=== PATIENT | female | born 1995 ===

== ENCOUNTER 2017-03-23 01:26 | Inpatient (IN) | payer SELFPAY ==
[2017-03-23 01:26] VITALS: BMI 20.6
--- NOTE | 2017-03-23 02:29 | ED PDOC ---
HPI: Abdomen Chief Complaint (Provider): abdominal pain History Per: Patient History/Exam Limitations: no limitations Onset/Duration Of Symptoms: Days (2) Current Symptoms Are (Timing): Still Present Severity: Moderate Location Of Pain/Discomfort: RUQ, Epigastric (radiating to lower thoracic spine) Quality Of Discomfort: Sharp, "Pain" Associated Symptoms: Nausea, Vomiting, Loss Of Appetite Exacerbating Factors: Supine, Movement, Food Alleviating Factors: Rest, Other (food) <Francisco Shook - Last Filed: 03/23/17 05:54> <Soraida Lopez - Last Filed: 03/23/17 05:57> Time Seen by Provider: 03/23/17 01:58 Chief Complaint (Nursing): Abdominal Pain Additional Complaint(s): Adela Nova is a pleasant 21 yo lady with no significant PMHx presents with 2 day history of epigastric pain radiating to lower thoracic spine and to the RUQ. She shares of associated N and vomiting x1 15 minutes prior to arriving. She shares that pain is sharp, intermittent. Aggravating factors include laying down and eating. Alleviating factors include rest and also eating. Denies constipation, diarrhea, dysuria, recent accidents or trauma to abdomen. PmHx: none Surg: none FamHx: nephrolithiasis Soc: denies smoking or illicit drugs. Shares of drinking beers twice a month. Currently, in a lesbian relationship, sexually active, no history of STI LMP: 03/16/2017, regular monthly cycles for 3 days Meds: Famotidine NKDA (Francisco Shook) Supervising Attending Note - Supervising Attending Note The Documented history was done by the: Physician Legal Contracts Specialist, Attending Physician The documented physical exam was done by the: Physician Legal Contracts Specialist, Attending Physician The documented procedures were done by the: Physician Legal Contracts Specialist, Attending Physician - Attestation: I have personally seen and examined this patient.: Yes I have fully participated in the care of the patient.: Yes I have reviewed all pertinent clinical information: Yes <Soraida Lopez - Last Filed: 03/23/17 05:57> Past Medical History - Medical History PMH: No Chronic Diseases - Surgical History Surgical History: No Surg Hx - Family History Family History: States: Other Other Family History: Nephrolithaisis - Social History Current smoker - smoking cessation education provided: No Alcohol: Occasional Drugs: Denies - Immunization History Hx Tetanus Toxoid Vaccination: No Hx Influenza Vaccination: No Hx Pneumococcal Vaccination: No <Francisco Shook Last Filed: 03/23/17 05:54> <Soraida Lopez A - Last Filed: 03/23/17 05:57> Vital Signs: Last Vital Signs Temp 97.5 F L 03/23/17 01:44 Pulse 92 H 03/23/17 01:44 Resp 18 03/23/17 01:44 BP 124/79 03/23/17 01:44 Pulse Ox 99 03/23/17 05:54 - Home Medications Home Medications: Ambulatory Orders Medication Instructions Recorded Famotidine [Pepcid] 20 mg PO DAILY PRN #6 tab 02/22/16 Famotidine [Pepcid] 20 mg PO DAILY #14 tab 02/23/16 Sucralfate [Carafate] 1 gm PO Q6H PRN #240 ml 02/26/16 - Allergies Allergies/Adverse Reactions: Allergies Allergy/AdvReac Type Severity Reaction Status Date / Time No Known Allergies Allergy Verified 02/26/16 17:24 Review of Systems ROS Statement: Except As Marked, All Systems Reviewed And Found Negative Gastrointestinal: Positive for: Nausea, Vomiting, Abdominal Pain (epigastric and RUQ) Musculoskeletal: Positive for: Back Pain (lower thoracic 2/2 epigastric pain) <Francisco Shook Filed: 03/23/17 05:54> Physical Exam - Reviewed Vital Signs Reviewed: Yes - Physical Exam Appears: Positive for: No Acute Distress Head Exam: Positive for: ATRAUMATIC, NORMAL INSPECTION, NORMOCEPHALIC Skin: Positive for: Warm, Dry, Jaundice Eye Exam: Positive for: Normal appearance, EOMI. Negative for: Nystagmus, Scleral icterus Cardiovascular/Chest: Positive for: Regular Rate, Rhythm, Chest Non Tender. Negative for: Murmur Respiratory: Positive for: Normal Breath Sounds. Negative for: Accessory Muscle Use, Wheezing Gastrointestinal/Abdominal: Positive for: Bowel Sounds, Soft, Tenderness ( epigastric). Negative for: Distended, Guarding, Rebound Back: Negative for: L CVA Tenderness, R CVA Tenderness Extremity: Negative for: Calf Tenderness Neurologic/Psych: Positive for: Alert, media relations director II-XII, Oriented <Francisco Shook - Last Filed: 03/23/17 05:54> - Laboratory Results Result Diagrams: 03/23/17 02:50 03/23/17 02:50 - ECG O2 Sat by Pulse Oximetry: 99 <Francisco Shook - Last Filed: 03/23/17 05:54> - Laboratory Results Result Diagrams: 03/23/17 02:50 03/23/17 02:50 <Soraida Lopez - Last Filed: 03/23/17 05:57> Medical Decision Making <Francisco Shook - Last Filed: 03/23/17 05:54> <Soraida Lopez - Last Filed: 03/23/17 05:57> Medical Decision Makin Discussed with Dr Saldana. He will be on consult. Recommends tylenol level adn MRCP. (Soraida Lopez) Procedures - Ultrasound Ultrasound: normal <Francisco Shook - Last Filed: 03/23/17 05:54> <Soraida Lopez - Last Filed: 03/23/17 05:57> - Ultrasound Progress: IMPRESSION: Normal right upper quadrant ultrasound. (Shook,Singh) Disposition Discussed With Dr.: Soraida Lopez Comment: DDX: choledocholithiasis, acute hepatitis. Consult GI possible MRCP vs CT abdo. <Francisco Shook - Last Filed: 03/23/17 05:54> - Patient ED Disposition Is Patient to be Admitted: Yes Counseled Patient/Family Regarding: Studies Performed, Diagnosis - Disposition Disposition Time: 05:40 - Pt Status Changed To: Hospital Disposition Of: Inpatient - Admit Certification Admit to Inpatient:: After my assessment, the patient will require hospitalization for at least two midnights. This is because of the severity of symptoms shown, intensity of services needed, and/or the medical risk in this patient being treated as an outpatient. - POA Present On Arrival: None <Soraida Lopez - Last Filed: 03/23/17 05:57> - Clinical Impression Clinical Impression: Liver enzyme elevation, Abdominal pain, Jaundice, Transaminitis - Disposition Condition: FAIR
[2017-03-23] MEDS ORDERED: Sodium Chloride 0.9% 1,000 ML IV SCH (02:30)
[2017-03-23] MEDS ORDERED: Sodium Chloride 0.9% 1,000 ML IV STA (02:57)
[2017-03-23 03:05] LABS: BASO % 0.4 % (0.0-2.0); EOS # 0.3 K/uL (0.0-0.7); EOS % 5.6 % (0.0-4.0); HEMOGLOBIN 14.9 g/dL (12.0-16.0); LYMPH % 18.5 % (20.0-40.0); MEAN CELL VOLUME 89.5 fl (81.0-99.0); MEAN CORPUSCULAR HEMOGLOBIN 30.5 pg (27.0-31.0); MEAN CORPUSCULAR HGB CONC 34.1 g/dL (33.0-37.0); MEAN PLATELET VOLUME 7.9 fl (7.2-11.7); MONO # 0.4 K/uL (0.0-0.8); MONO % 7.2 % (0.0-10.0); NEUT # 3.6 K/uL (1.8-7.0); NEUT % 68.3 % (50.0-75.0); NRBC % 0.2 % (0.0-0.0); RBC 4.88 Mil/uL (3.80-5.20); RED CELL DISTRIBUTION WIDTH 13.8 % (11.5-14.5); WHITE BLOOD COUNT 5.2 K/uL (4.8-10.8)
[2017-03-23 03:20] LABS: ALB/GLOB RATIO 1.3 (1.0-2.1); BLOOD UREA NITROGEN 13 mg/dl (7-17); CALCIUM 9.8 mg/dL (8.4-10.2); GFR AFRICAN-AMERICAN > 60; GFR NON-AFRICAN AMERICAN > 60; LIPASE 138 U/L (23-300)
[2017-03-23 03:54] LABS: ALT/SGPT 1560 U/L (9-52); AST/SGOT 1128 U/L (14-36)
[2017-03-23] MEDS ORDERED: Iohexol 300 100 ML IJ ONE (04:56)
[2017-03-23] MEDS ORDERED: Sodium Chloride 0.9% 50 ML IV ONE (04:56)
--- NOTE | 2017-03-23 05:42 | CP.PCM.HP ---
History of Present Illness - History of Present Illness History of Present Illness: PCP: None Chief complaint: Abdominal Pain. HPI: 21 years old female with hx of chronic epigastric pains, comes with 2 days of sharp, continuous, progressively worsening epigastric pains radiating to the RUQ, not relieved with Pepcid and increases with food and movement, associated with nausea, vomiting once. No Trauma history, ingestion of new medications, no diarrhea, Dysuria nor urinary frequency, uses Alcohol socially. PMH: Chronic epigastric pain PSH: Denies SH: No illegal drug use Allergies: NKDA Medication: Pepcid LMP: 03/16/2017, regular monthly cycles for 3 days Present on Admission - Present on Admission Any Indicators Present on Admission: No History of DVT/PE: No History of Uncontrolled Diabetes: No Urinary Catheter: No Decubitus Ulcer Present: No Review of Systems - Constitutional Constitutional: Anorexia. absent: Fatigue, Fever, Headache, Malaise - EENT Eyes: Requires Corrective Lenses. absent: Diplopia, Floaters, Sees Flashes Ears: absent: Decreased Hearing, Ear Discharge, Tinnitus Nose/Mouth/Throat: absent: Epistaxis, Nasal Congestion, Nasal Discharge, Sinus Pain, Sinus Pressure - Cardiovascular Cardiovascular: absent: Chest Pain, Dyspnea, Leg Edema - Respiratory Respiratory: absent: Cough, Dyspnea, Wheezing, Snoring, Chest Congestion - Gastrointestinal Gastrointestinal: Abdominal Pain, Nausea, Vomiting. absent: Constipation, Diarrhea Additional comments: Epigastric and right upper Quadrant abdominal pain - Genitourinary Genitourinary: absent: Dysuria, Flank Pain, Hematuria, Urinary Frequency - Musculoskeletal Musculoskeletal: Arthralgias. absent: Myalgias Additional comments: Bilateral Knee pains chronic from dancing - Integumentary Integumentary: absent: Pruritus, Rash, Skin Ulcer, Sores, Striae, Swelling - Neurological Neurological: absent: Confusion, Dizziness, Focal Weakness, Headaches - Psychiatric Psychiatric: absent: Anxiety, Depression, Panic Attacks - Endocrine Endocrine: absent: Palpitations, Polydipsia, Polyphagia, Polyuria - Hematologic/Lymphatic Hematologic: absent: Easy Bleeding, Easy Bruising Past Patient History - Past Medical History & Family History Past Medical History?: No - Past Social History Smoking Status: Never Smoked Chewing Tobacco Use: No Cigar Use: No Alcohol: Occasional Drugs: Denies Home Situation {Lives}: Friends - CARDIAC Hx Cardiac Disorders: No - PULMONARY Hx Respiratory Disorders: No - NEUROLOGICAL Hx Neurological Disorder: No - HEENT Hx HEENT Problems: No - RENAL Hx Chronic Kidney Disease: No - ENDOCRINE/METABOLIC Hx Endocrine Disorders: No - HEMATOLOGICAL/ONCOLOGICAL Hx Blood Disorders: No - INTEGUMENTARY Hx Dermatological Problems: No - MUSCULOSKELETAL/RHEUMATOLOGICAL Hx Musculoskeletal Disorders: No - GASTROINTESTINAL Hx Gastrointestinal Disorders: No Other/Comment: Chronic epigastric pain - GENITOURINARY/GYNECOLOGICAL Hx Genitourinary Disorders: No - PSYCHIATRIC Hx Psychophysiologic Disorder: No Hx Substance Use: No - SURGICAL HISTORY Hx Surgeries: No - ANESTHESIA Hx Anesthesia: No Meds Allergies/Adverse Reactions: Allergies Allergy/AdvReac Type Severity Reaction Status Date / Time No Known Allergies Allergy Verified 02/26/16 17:24 Physical Exam - Constitutional Appears: No Acute Distress - Head Exam Head Exam: ATRAUMATIC, NORMAL INSPECTION, NORMOCEPHALIC - Eye Exam Eye Exam: EOMI, Normal appearance Pupil Exam: NORMAL ACCOMODATION, PERRL - ENT Exam ENT Exam: Mucous Membranes Moist, Normal Exam - Neck Exam Neck exam: Positive for: Full Rom, Normal Inspection. Negative for: Lymphadenopathy, Tenderness - Respiratory Exam Respiratory Exam: Clear to Auscultation Bilateral. absent: Rales, Rhonchi, Wheezes - Cardiovascular Exam Cardiovascular Exam: REGULAR RHYTHM, +S1, +S2 - GI/Abdominal Exam GI & Abdominal Exam: Normal Bowel Sounds, Soft. absent: Organomegaly Additional comments: Abdomen flat, soft, tender at the epigastrium, no rebound tenderness, no guarding - Rectal Exam Rectal Exam: Deferred - Extremities Exam Extremities exam: Positive for: full ROM, normal inspection. Negative for: calf tenderness, joint swelling, pedal edema - Back Exam Back exam: NORMAL INSPECTION. absent: CVA tenderness (L), CVA tenderness (R) - Neurological Exam Neurological exam: Alert, CN II-XII Intact, Oriented x3, Reflexes Normal - Psychiatric Exam Psychiatric exam: Normal Affect, Normal Mood - Skin Skin Exam: Dry, Intact, Normal Color, Warm Results - Vital Signs Recent Vital Signs: Last Vital Signs Temp 97.5 F L 03/23/17 01:44 Pulse 92 H 03/23/17 01:44 Resp 18 03/23/17 01:44 BP 124/79 03/23/17 01:44 Pulse Ox 99 03/23/17 05:33 - Labs Result Diagrams: 03/23/17 02:50 03/23/17 02:50 Labs: Laboratory Results - last 24 hr 03/23/17 03/23/17 03/23/17 02:00 02:50 02:50 WBC 5.2 RBC 4.88 Hgb 14.9 Hct 43.7 MCV 89.5 MCH 30.5 MCHC 34.1 RDW 13.8 Plt Count 260 MPV 7.9 Neut % (Auto) 68.3 Lymph % (Auto) 18.5 L Barron % (Auto) 7.2 Eos % (Auto) 5.6 H Baso % (Auto) 0.4 Neut # 3.6 Lymph # 1.0 Barron # 0.4 Eos # 0.3 Baso # 0.0 Sodium 143 Potassium 4.0 Chloride 103 Carbon Dioxide 30 Anion Gap 14 BUN 13 Creatinine 0.6 L Est GFR ( Amer) > 60 Est GFR (Non-Af Amer) > 60 Random Glucose 126 H Calcium 9.8 Total Bilirubin 3.3 H Direct Bilirubin 2.1 H AST 1128 H ALT 1560 H Alkaline Phosphatase 140 H Total Protein 8.8 H Albumin 5.0 Globulin 3.9 Albumin/Globulin Ratio 1.3 Lipase 138 - Imaging and Cardiology US - abdomen Status: Image reviewed by me Additional comment: EXAM: US Abdomen Limited, Right Upper Quadrant FINDINGS: Liver: Unremarkable. No mass. No intrahepatic bile duct dilation. Gallbladder: Unremarkable. No gallstones. Common bile duct: Unremarkable as visualized. No stones. No dilation. Pancreas: Unremarkable as visualized. Right kidney: Unremarkable. No stones. No solid mass. No hydronephrosis. IMPRESSION: Normal right upper quadrant ultrasound. CT scan - abdomen Additional comment: EXAM: CT Abdomen and Pelvis With Intravenous Contrast FINDINGS: Lower thorax: No acute findings. ABDOMEN: Liver: Unremarkable. No mass. Gallbladder and bile ducts: Unremarkable. No calcified stones. No ductal dilation. Pancreas: Unremarkable. No mass. No ductal dilation. Spleen: Unremarkable. No splenomegaly. Adrenals: Unremarkable. No mass. Kidneys and ureters: Unremarkable. No solid mass. No hydronephrosis. Stomach and bowel: Partially decompressed proximal transverse colon with possible mild thickening No obstruction. Question minimal mucosal thickening. Appendix: No findings to suggest acute appendicitis. PELVIS: Bladder: Partially decompressed. Reproductive: 13 mm right ovarian cyst ABDOMEN and PELVIS: Intraperitoneal space: Unremarkable. No free air. No significant fluid collection. Bones/joints: No acute fracture. No dislocation. Soft tissues: Unremarkable. Vasculature: Unremarkable. No abdominal aortic aneurysm. Lymph nodes: Unremarkable. No enlarged lymph nodes. IMPRESSION: Nonspecific nonobstructed bowel gas pattern with possible minimal mucosal thickening. Correlate for enteritis Partially decompressed versus mildly thickened proximal transverse colon. Small right ovarian cyst Assessment & Plan - Assessment and Plan (Free Text) Assessment: #. Abdominal Pain #. Transaminitis Plan: 21 years old female with hx of chronic epigastric pains, comes with 2 days of sharp, continuous, progressively worsening epigastric pains radiating to the RUQ , not relieved with Pepcid and increases with food and movement, associated with nausea, vomiting once. No Trauma history, ingestion of new medications, no diarrhea, Dysuria nor urinary frequency, uses Alcohol socially. #. Abdominal Pain with Transaminitis. Patient has chronic hx of epigastric pain. r/o ViralHepatitis vs Chemical hepatitis. Patient may also have PUD - Abdominal US: IMPRESSION: Normal right upper quadrant ultrasound. - CT abdomen: No sign of Hepatic nor Biliary Pathology - Consult Dr Saldana GI - Liquid Diet - Hepatitis profile - Urine drug screen - CPK - Urinalysis #. Stress Ulcer Prophylaxis with Pantoprazole. #. DVT prophylaxis with Lovenox #. Code Status: Full - Date & Time Date: 03/23/17 Time: 05:42
[2017-03-23 06:39] LABS: INR 1.3 (0.9-1.2); PARTIAL THROMBOPLASTIN TIME 24.3 Seconds (25.6-37.1); PROTHROMBIN TIME 14.7 Seconds (9.8-13.1)
[2017-03-23] MEDS ORDERED: Pantoprazole 40 mg EC Tab PO SCH (09:00)
[2017-03-23] MEDS: Sodium Chloride 0.9% 1,000 ML IV SCH ×2 (09:18→21:49)
[2017-03-23] MEDS: Enoxaparin 40 mg Syringe SC SCH (10:18)
--- NOTE | 2017-03-23 10:32 | CT ---
PROCEDURE: CT Abdomen and Pelvis with contrast HISTORY: abdominal pain COMPARISON: None. TECHNIQUE: Contrast dose: 90 mL Omnipaque 300 Radiation dose: Total exam DLP = 322.34 mGy-cm. This CT exam was performed using one or more of the following dose reduction techniques: Automated exposure control, adjustment of the mA and/or kV according to patient size, and/or use of iterative reconstruction technique. FINDINGS: LOWER THORAX: Unremarkable. LIVER: Normal size, contour and attenuation. No mass. No biliary dilatation. Very mild nonspecific periportal edema. Smooth contour. GALLBLADDER AND BILE DUCTS: Unremarkable. PANCREAS: Unremarkable. No gross lesion or ductal dilatation. SPLEEN: Unremarkable. ADRENALS: Unremarkable. No mass. KIDNEYS AND URETERS: Unremarkable. No hydronephrosis. No solid mass. VASCULATURE: Unremarkable. No aortic aneurysm. BOWEL: Unremarkable. No obstruction. No gross mural thickening. APPENDIX: Normal appendix. PERITONEUM: Unremarkable. No free fluid. No free air. LYMPH NODES: Shotty subcentimeter retroperitoneal nodes. Subcentimeter nodes within the small bowel mesenteric common nonspecific. Findings consistent with nonspecific mesenteric adenitis, possibly viral. BLADDER: Unremarkable. REPRODUCTIVE: Normal uterus BONES: No acute fracture. OTHER FINDINGS: None. IMPRESSION: Nonspecific subcentimeter mesenteric lymph nodes as well as subcentimeter retroperitoneal nodes. Consistent with nonspecific mesenteric adenitis. Mild nonspecific periportal edema. Otherwise unremarkable examination. Preliminary interpretation of this examination was reported by [employer] at 6:28 a.m. on 03/23/2017. There is concurrence of this report with the preliminary interpretation.
--- NOTE | 2017-03-23 11:07 | US ---
HISTORY: ruq pain COMPARISON: None. TECHNIQUE: Sonographic evaluation of the right upper quadrant of the abdomen. FINDINGS: LIVER: Measures 12.5 cm in length. Normal echogenicity of the liver parenchyma. No mass. No intrahepatic bile duct dilatation. GALLBLADDER: Unremarkable. No gallstones. COMMON BILE DUCT: Measures 3 mm. No stones. No dilatation. PANCREAS: Unremarkable as visualized. No mass. No ductal dilatation. RIGHT KIDNEY: Measures 10.0 cm in length. Normal echogenicity. No calculus, mass, or hydronephrosis. AORTA: No aneurysmal dilatation. IVC: Unremarkable. OTHER FINDINGS: None . IMPRESSION: Unremarkable examination.
--- NOTE | 2017-03-23 15:03 | CP.PCM.CON ---
History of Present Illness - History of Present Illness History of Present Illness: 21 al old female admitted after 2 1/2 days upper abdominal pain and queasinesss. Aggravated by food intake. Had an episode of abdominal pain one year ago which required an injection of morphine. Somewhat better today. Review of Systems - Constitutional Constitutional: absent: Chills - EENT Eyes: absent: Change in Vision Ears: absent: Ear Discharge Nose/Mouth/Throat: absent: Nasal Congestion - Cardiovascular Cardiovascular: absent: Chest Pain - Respiratory Respiratory: absent: Cough - Gastrointestinal Gastrointestinal: As Per HPI - Genitourinary Genitourinary: absent: Change in Urinary Stream Past Patient History - Past Medical History & Family History Past Medical History?: No - Past Social History Smoking Status: Never Smoked Chewing Tobacco Use: No Cigar Use: No Alcohol: Occasional Drugs: Denies Home Situation {Lives}: Friends - CARDIAC Hx Cardiac Disorders: No - PULMONARY Hx Respiratory Disorders: No - NEUROLOGICAL Hx Neurological Disorder: No - HEENT Hx HEENT Problems: No - RENAL Hx Chronic Kidney Disease: No - ENDOCRINE/METABOLIC Hx Endocrine Disorders: No - HEMATOLOGICAL/ONCOLOGICAL Hx Blood Disorders: No - INTEGUMENTARY Hx Dermatological Problems: No - MUSCULOSKELETAL/RHEUMATOLOGICAL Hx Musculoskeletal Disorders: No - GASTROINTESTINAL Hx Gastrointestinal Disorders: No Other/Comment: Chronic epigastric pain - GENITOURINARY/GYNECOLOGICAL Hx Genitourinary Disorders: No - PSYCHIATRIC Hx Psychophysiologic Disorder: No Hx Substance Use: No - SURGICAL HISTORY Hx Surgeries: No - ANESTHESIA Hx Anesthesia: No Meds Allergies/Adverse Reactions: Allergies Allergy/AdvReac Type Severity Reaction Status Date / Time No Known Allergies Allergy Verified 02/26/16 17:24 - Medications Medications: Current Medications Enoxaparin Sodium (Lovenox) 40 mg SC DAILY [facility] PRN Reason: Protocol Last Admin: 03/23/17 10:18 Dose: 40 mg Sodium Chloride (Sodium Chloride 0.9%) 1,000 mls @ 100 mls/hr IV .Q10H [facility] Stop: 03/24/17 06:30 Last Admin: 03/23/17 09:18 Dose: 100 mls/hr Ondansetron HCl (Zofran Inj) 4 mg IVP Q4 PRN PRN Reason: Nausea/Vomiting Pantoprazole Sodium (Protonix Inj) 40 mg IVP DAILY [facility] Last Admin: 03/23/17 10:15 Dose: 40 mg Physical Exam - Constitutional Appears: No Acute Distress - Head Exam Head Exam: ATRAUMATIC - Eye Exam Eye Exam: Normal appearance - ENT Exam ENT Exam: Mucous Membranes Moist - Neck Exam Neck exam: Positive for: Normal Inspection - Respiratory Exam Respiratory Exam: Clear to Auscultation Bilateral, NORMAL BREATHING PATTERN - Cardiovascular Exam Cardiovascular Exam: REGULAR RHYTHM, +S1, +S2 - GI/Abdominal Exam GI & Abdominal Exam: Normal Bowel Sounds, Soft, Tenderness Additional comments: RUQ tenderness Results - Vital Signs Recent Vital Signs: Last Vital Signs Temp 98.4 F 03/23/17 08:09 Pulse 69 03/23/17 08:09 Resp 20 03/23/17 08:09 BP 103/68 03/23/17 08:09 Pulse Ox 98 03/23/17 08:09 - Labs Result Diagrams: 03/23/17 02:50 03/23/17 02:50 Labs: Laboratory Results - last 24 hr 03/23/17 03/23/17 03/23/17 02:00 02:50 02:50 WBC 5.2 RBC 4.88 Hgb 14.9 Hct 43.7 MCV 89.5 MCH 30.5 MCHC 34.1 RDW 13.8 Plt Count 260 MPV 7.9 Neut % (Auto) 68.3 Lymph % (Auto) 18.5 L Coffee % (Auto) 7.2 Eos % (Auto) 5.6 H Baso % (Auto) 0.4 Neut # 3.6 Lymph # 1.0 Coffee # 0.4 Eos # 0.3 Baso # 0.0 PT INR APTT Sodium 143 Potassium 4.0 Chloride 103 Carbon Dioxide 30 Anion Gap 14 BUN 13 Creatinine 0.6 L Est GFR ( Amer) > 60 Est GFR (Non-Af Amer) > 60 Random Glucose 126 H Calcium 9.8 Total Bilirubin 3.3 H Direct Bilirubin 2.1 H AST 1128 H ALT 1560 H Alkaline Phosphatase 140 H Total Creatine Kinase Total Protein 8.8 H Albumin 5.0 Globulin 3.9 Albumin/Globulin Ratio 1.3 Lipase 138 Acetaminophen 03/23/17 03/23/17 03/23/17 06:17 06:17 12:30 WBC RBC Hgb Hct MCV MCH MCHC RDW Plt Count MPV Neut % (Auto) Lymph % (Auto) Coffee % (Auto) Eos % (Auto) Baso % (Auto) Neut # Lymph # Coffee # Eos # Baso # PT 14.7 H INR 1.3 H APTT 24.3 L Sodium Potassium Chloride Carbon Dioxide Anion Gap BUN Creatinine Est GFR ( Amer) Est GFR (Non-Af Amer) Random Glucose Calcium Total Bilirubin Direct Bilirubin AST ALT Alkaline Phosphatase Total Creatine Kinase 76 Total Protein Albumin Globulin Albumin/Globulin Ratio Lipase Acetaminophen < 10.0 L Assessment & Plan (1) Liver enzyme elevation Assessment and Plan: very high LFTs. R/o Hep A,B,C, autoimmune, and hemochromatosis. Serology pending. Status: Acute
[2017-03-23 20:21] LABS: SQUAMOUS EPITHIAL 2 /hpf (0-5); URINE BILIRUBIN NEGATIVE (NEGATIVE); URINE BLOOD NEGATIVE (NEGATIVE); URINE CLARITY SLIGHTY-CLOUDY (Clear); URINE GLUCOSE (UA) NEG (Normal); URINE LEUKOCYTE ESTERASE NEG Leu/uL (Negative); URINE NITRATE NEGATIVE (NEGATIVE); URINE PROTEIN NEGATIVE (NEGATIVE); URINE UROBILINOGEN 0.2-1.0 mg/dL (0.2-1.0)
[2017-03-23 20:30] LABS: URINE COLOR YELLOW (YELLOW)
[2017-03-23 20:56] LABS: BARBITURATES, UR NEGATIVE (NEGATIVE); BENZODIAZEPINES, UR NEGATIVE (NEGATIVE); OPIATES, UR NEGATIVE (NEGATIVE); PHENCYCLIDINE, UR NEGATIVE (NEGATIVE)
[2017-03-24] MEDS: Sodium Chloride 0.9% 1,000 ML IV SCH ×3 (02:30→23:02)
[2017-03-24 06:45] LABS: HEMOGLOBIN 13.2 g/dL (12.0-16.0); MEAN CELL VOLUME 89.5 fl (81.0-99.0); MEAN CORPUSCULAR HEMOGLOBIN 30.7 pg (27.0-31.0); MEAN CORPUSCULAR HGB CONC 34.4 g/dL (33.0-37.0); RBC 4.31 Mil/uL (3.80-5.20); RED CELL DISTRIBUTION WIDTH 13.5 % (11.5-14.5); WHITE BLOOD COUNT 5.1 K/uL (4.8-10.8)
[2017-03-24 06:51] LABS: IRON 150 ug/dL (37-170)
[2017-03-24 06:56] LABS: INR 1.3 (0.9-1.2); PROTHROMBIN TIME 14.3 Seconds (9.8-13.1)
[2017-03-24 07:00] LABS: % IRON SATURATION 55 % (20-55); ALB/GLOB RATIO 1.2 (1.0-2.1); ALBUMIN 3.7 g/dL (3.5-5.0); ALT/SGPT 759 U/L (9-52); AST/SGOT 243 U/L (14-36); BLOOD UREA NITROGEN 6 mg/dl (7-17); CALCIUM 8.9 mg/dL (8.4-10.2); GFR AFRICAN-AMERICAN > 60; GFR NON-AFRICAN AMERICAN > 60; TOTAL IRON BINDING CAPACITY 272 ug/dL (250-450)
[2017-03-24 07:59] VITALS: RESP 18
[2017-03-24] MEDS: Enoxaparin 40 mg Syringe SC SCH (08:15)
--- NOTE | 2017-03-24 16:39 | CP.PCM.PN ---
Subjective - Date & Time of Evaluation Date of Evaluation: 03/24/17 Time of Evaluation: 13:00 - Subjective Subjective: No fever still with RUQ and epigastric pain denies ETOH, drugs, does not take meds at home only occ Pepcid no CP no SOB no hx of recent travel Objective - Vital Signs/Intake and Output Vital Signs (last 24 hours): Temp Pulse Resp BP Pulse Ox 98.1 F 67 18 105/56 L 99 03/24/17 15:40 03/24/17 15:40 03/24/17 15:40 03/24/17 15:40 03/24/17 15:40 - Medications Medications: Current Medications Enoxaparin Sodium (Lovenox) 40 mg SC DAILY [facility] PRN Reason: Protocol Last Admin: 03/24/17 08:15 Dose: 40 mg Ondansetron HCl (Zofran Inj) 4 mg IVP Q4 PRN PRN Reason: Nausea/Vomiting Pantoprazole Sodium (Protonix Inj) 40 mg IVP DAILY [facility] Last Admin: 03/24/17 08:15 Dose: 40 mg - Labs Labs: 03/24/17 06:30 03/24/17 06:30 PT 14.3 Seconds (9.8-13.1) H 03/24/17 06:30 INR 1.3 (0.9-1.2) H 03/24/17 06:30 APTT 24.3 Seconds (25.6-37.1) L 03/23/17 06:17 - Constitutional Appears: Non-toxic, No Acute Distress - Head Exam Head Exam: ATRAUMATIC, NORMAL INSPECTION, NORMOCEPHALIC - Eye Exam Eye Exam: EOMI, Normal appearance, PERRL Pupil Exam: NORMAL ACCOMODATION - ENT Exam ENT Exam: Mucous Membranes Moist, Normal External Ear Exam - Neck Exam Neck Exam: Full ROM. absent: Meningismus - Respiratory Exam Respiratory Exam: NORMAL BREATHING PATTERN. absent: Rales, Wheezes, Respiratory Distress - Cardiovascular Exam Cardiovascular Exam: REGULAR RHYTHM, +S1, +S2 - GI/Abdominal Exam GI & Abdominal Exam: Soft, Tenderness (Ruq and epigastric), Normal Bowel Sounds - Extremities Exam Extremities Exam: Full ROM, Normal Capillary Refill, Normal Inspection. absent : Calf Tenderness, Pedal Edema - Back Exam Back Exam: Full ROM, NORMAL INSPECTION. absent: CVA tenderness (L), CVA tenderness (R) - Neurological Exam Neurological Exam: Alert, Awake, CN II-XII Intact, Normal Gait, Oriented x3 Neuro motor strength exam: Left Upper Extremity: 5, Right Upper Extremity: 5, Left Lower Extremity: 5, Right Lower Extremity: 5 - Psychiatric Exam Psychiatric exam: Normal Affect, Normal Mood - Skin Skin Exam: Dry (mild tenderness RUQ and epigastric area), Normal Color, Warm Assessment and Plan - Assessment and Plan (Free Text) Assessment: 21 years old female with hx of chronic epigastric pains, comes with 2 days of sharp, continuous, progressively worsening epigastric pains radiating to the RUQ , not relieved with Pepcid and increases with food and movement, associated with nausea, vomiting once. No Trauma history, ingestion of new medications, no diarrhea, Dysuria nor urinary frequency, uses Alcohol socially. #. Abdominal Pain with Transaminitis. Patient has chronic hx of epigastric pain. r/o ViralHepatitis vs Chemical hepatitis. Patient may also have PUD - Abdominal US: Normal right upper quadrant ultrasound. - CT abdomen: No sign of Hepatic nor Biliary Pathology - Consult Dr Saldana GI - Liquid Diet - IVF hydration - Hepatitis profile pending - Iron level normal - Urine drug screen: neg - Urinalysis: neg - Pain mgt - Carafate , PPI #. DVT prophylaxis with Lovenox
[2017-03-24] MEDS: Sucralfate 1 gm/10 ml Oral Susp UD PO SCH ×2 (16:48→21:22)
[2017-03-24 23:38] VITALS: O2SAT 100
[2017-03-25] MEDS: Sucralfate 1 gm/10 ml Oral Susp UD PO SCH ×2 (06:32→11:46)
[2017-03-25 06:40] LABS: ALB/GLOB RATIO 1.1 (1.0-2.1); ALBUMIN 3.2 g/dL (3.5-5.0); BILIRUBIN,DIRECT 0.5 mg/ml (0.0-0.4)
[2017-03-25 07:53] VITALS: BP 102/66; PULSE 64; TEMP 97.8
[2017-03-25] MEDS: Enoxaparin 40 mg Syringe SC SCH (08:21)
--- NOTE | 2017-03-25 10:16 | CP.PCM.PN ---
Subjective - Date & Time of Evaluation Date of Evaluation: 03/25/17 Time of Evaluation: 09:00 - Subjective Subjective: Having less abdominal pain. On liquid diet, wqs unable to tolerate solids yesterday. Objective - Vital Signs/Intake and Output Vital Signs (last 24 hours): Temp Pulse Resp BP Pulse Ox 97.8 F 64 18 102/66 100 03/25/17 07:52 03/25/17 07:52 03/25/17 07:52 03/25/17 07:52 03/25/17 07:52 - Medications Medications: Current Medications Enoxaparin Sodium (Lovenox) 40 mg SC DAILY [facility] PRN Reason: Protocol Last Admin: 03/25/17 08:21 Dose: 40 mg Morphine Sulfate (Morphine) 2 mg IVP Q8 PRN PRN Reason: Pain, severe (8-10) Last Admin: 03/24/17 17:43 Dose: 2 mg Ondansetron HCl (Zofran Inj) 4 mg IVP Q4 PRN PRN Reason: Nausea/Vomiting Last Admin: 03/24/17 23:00 Dose: 4 mg Pantoprazole Sodium (Protonix Inj) 40 mg IVP DAILY [facility] Last Admin: 03/25/17 08:21 Dose: 40 mg Sucralfate (Carafate Oral Susp) 1 gm PO ACHS [facility] Last Admin: 03/25/17 06:32 Dose: 1 gm - Labs Labs: 03/24/17 06:30 03/24/17 06:30 PT 14.3 Seconds (9.8-13.1) H 03/24/17 06:30 INR 1.3 (0.9-1.2) H 03/24/17 06:30 APTT 24.3 Seconds (25.6-37.1) L 03/23/17 06:17 - Head Exam Head Exam: ATRAUMATIC - Eye Exam Eye Exam: PERRL - Neck Exam Neck Exam: Full ROM - Respiratory Exam Respiratory Exam: NORMAL BREATHING PATTERN - Cardiovascular Exam Cardiovascular Exam: REGULAR RHYTHM - GI/Abdominal Exam GI & Abdominal Exam: Soft, Tenderness, Normal Bowel Sounds Additional comments: moderate RUQ and epigastric tenderness Assessment and Plan (1) Liver enzyme elevation Assessment & Plan: Clinically improving and LFTs are coming down daily. Serlogy and autoimmune markers pending. If liquids are tolerated may be discharged and followed as outpatient. Status: Acute
--- NOTE | 2017-03-25 11:34 | CP.PCM.DIS ---
Provider - Provider Date of Admission: 03/23/17 05:37 Attending physician: Kuldeep Goldberg Primary care physician: Dr Quinones ( [facility]) Consults: GI : Dr Saldana Time Spent in preparation of Discharge (in minutes): 35 Diagnosis - Discharge Diagnosis (1) Abdominal pain Status: Acute (2) Hepatitis Status: Suspected (3) Liver enzyme elevation Status: Acute Hospital Course - Lab Results Lab Results: Most Recent Lab Values WBC 5.1 K/uL (4.8-10.8) 03/24/17 06:30 RBC 4.31 Mil/uL (3.80-5.20) 03/24/17 06:30 Hgb 13.2 g/dL (12.0-16.0) 03/24/17 06:30 Hct 38.5 % (34.0-47.0) 03/24/17 06:30 MCV 89.5 fl (81.0-99.0) 03/24/17 06:30 MCH 30.7 pg (27.0-31.0) 03/24/17 06:30 MCHC 34.4 g/dL (33.0-37.0) 03/24/17 06:30 RDW 13.5 % (11.5-14.5) 03/24/17 06:30 Plt Count 209 K/uL (130-400) 03/24/17 06:30 MPV 7.9 fl (7.2-11.7) 03/23/17 02:50 Neut % (Auto) 68.3 % (50.0-75.0) 03/23/17 02:50 Lymph % (Auto) 18.5 % (20.0-40.0) L 03/23/17 02:50 [place] % (Auto) 7.2 % (0.0-10.0) 03/23/17 02:50 Eos % (Auto) 5.6 % (0.0-4.0) H 03/23/17 02:50 Baso % (Auto) 0.4 % (0.0-2.0) 03/23/17 02:50 Neut # 3.6 K/uL (1.8-7.0) 03/23/17 02:50 Lymph # 1.0 K/uL (1.0-4.3) 03/23/17 02:50 [place] # 0.4 K/uL (0.0-0.8) 03/23/17 02:50 Eos # 0.3 K/uL (0.0-0.7) 03/23/17 02:50 Baso # 0.0 K/uL (0.0-0.2) 03/23/17 02:50 PT 14.3 Seconds (9.8-13.1) H 03/24/17 06:30 INR 1.3 (0.9-1.2) H 03/24/17 06:30 APTT 24.3 Seconds (25.6-37.1) L 03/23/17 06:17 Sodium 142 mmol/l (132-148) 03/24/17 06:30 Potassium 4.1 MMOL/L (3.6-5.0) 03/24/17 06:30 Chloride 107 mmol/L (98-107) 03/24/17 06:30 Carbon Dioxide 24 mmol/L (22-30) 03/24/17 06:30 Anion Gap 15 (10-20) 03/24/17 06:30 BUN 6 mg/dl (7-17) L 03/24/17 06:30 Creatinine 0.6 mg/dl (0.7-1.2) L 03/24/17 06:30 Est GFR ( Amer) > 60 03/24/17 06:30 Est GFR (Non-Af Amer) > 60 03/24/17 06:30 Random Glucose 77 mg/dL (65-105) 03/24/17 06:30 Calcium 8.9 mg/dL (8.4-10.2) 03/24/17 06:30 Iron 150 ug/dL (37-170) 03/24/17 06:30 TIBC 272 ug/dL (250-450) 03/24/17 06:30 % Saturation 55 % (20-55) 03/24/17 06:30 Total Bilirubin 0.8 mg/dl (0.2-1.3) 03/25/17 05:25 Direct Bilirubin 0.5 mg/ml (0.0-0.4) H 03/25/17 05:25 AST 113 U/L (14-36) H D 03/25/17 05:25 ALT 525 U/L (9-52) H D 03/25/17 05:25 Alkaline Phosphatase 94 U/L (38-126) 03/25/17 05:25 Total Creatine Kinase 76 U/L (30-135) 03/23/17 12:30 Total Protein 6.0 G/DL (6.3-8.2) L 03/25/17 05:25 Albumin 3.2 g/dL (3.5-5.0) L 03/25/17 05:25 Globulin 2.8 gm/dL (2.2-3.9) 03/25/17 05:25 Albumin/Globulin Ratio 1.1 (1.0-2.1) 03/25/17 05:25 Lipase 138 U/L (23-300) 03/23/17 02:50 Urine Color Yellow (YELLOW) 03/23/17 20:10 Urine Clarity Slighty-cloudy (Clear) 03/23/17 20:10 Urine pH 6.0 (5.0-8.0) 03/23/17 20:10 Ur Specific [place] 1.012 (1.003-1.030) 03/23/17 20:10 Urine Protein Negative mg/dL (NEGATIVE) 03/23/17 20:10 Urine Glucose (UA) Neg mg/dL (Normal) 03/23/17 20:10 Urine Ketones Negative mg/dL (NEGATIVE) 03/23/17 20:10 Urine Blood Negative (NEGATIVE) 03/23/17 20:10 Urine Nitrate Negative (NEGATIVE) 03/23/17 20:10 Urine Bilirubin Negative (NEGATIVE) 03/23/17 20:10 Urine Urobilinogen 0.2-1.0 mg/dL (0.2-1.0) 03/23/17 20:10 Ur Leukocyte Esterase Neg [place]/uL (Negative) 03/23/17 20:10 Urine RBC (Auto) < 1 /hpf (0-3) 03/23/17 20:10 Urine Microscopic WBC 1 /hpf (0-5) 03/23/17 20:10 Ur Squamous Epith Cells 2 /hpf (0-5) 03/23/17 20:10 Urine Opiates Screen Negative (NEGATIVE) 03/23/17 20:10 Urine Methadone Screen Negative (NEGATIVE) 03/23/17 20:10 Acetaminophen < 10.0 ug/ml (10.0-30.0) L 03/23/17 06:17 Ur Barbiturates Screen Negative (NEGATIVE) 03/23/17 20:10 Ur Phencyclidine Scrn Negative (NEGATIVE) 03/23/17 20:10 Ur Amphetamines Screen Negative (NEGATIVE) 03/23/17 20:10 U Benzodiazepines Scrn Negative (NEGATIVE) 03/23/17 20:10 U Oth Cocaine Metabols Negative (NEGATIVE) 03/23/17 20:10 U Cannabinoids Screen Negative (NEGATIVE) 03/23/17 20:10 - Hospital Course Hospital Course: 21 years old female with hx of chronic epigastric pains, comes with 2 days of sharp, continuous, progressively worsening epigastric pains radiating to the RUQ , not relieved with Pepcid and increases with food and movement, associated with nausea, vomiting once. No Trauma history, ingestion of new medications, no diarrhea, Dysuria nor urinary frequency, uses Alcohol socially. #. Abdominal Pain with Transaminitis probably Hepatitis, ? Viral - poss Hepatitis , await pending test - Abdominal US: Normal right upper quadrant ultrasound. - CT abdomen: No sign of Hepatic nor Biliary Pathology - Consult Dr Saldana GI - tolerated PO diet - IVF hydration - Hepatitis profile pending - Iron level normal - Urine drug screen: neg - Urinalysis: neg - Pain mgt - Carafate , PPI - Abd pain resolved - pt will ff up with her PMD for further work up - LFTS trending down - to ff up Hepatitis panel [facility] PMD #. DVT prophylaxis with Lovenox Discharge Exam - Head Exam Head Exam: ATRAUMATIC, NORMAL INSPECTION, NORMOCEPHALIC - Eye Exam Eye Exam: EOMI, Normal appearance, PERRL Pupil Exam: NORMAL ACCOMODATION - ENT Exam ENT Exam: Mucous Membranes Moist, Normal External Ear Exam - Neck Exam Neck exam: Full Rom - Respiratory Exam Respiratory Exam: NORMAL BREATHING PATTERN. absent: Rales, Respiratory Distress - Cardiovascular Exam Cardiovascular Exam: REGULAR RHYTHM, +S1, +S2 - GI/Abdominal Exam GI & Abdominal Exam: Normal Bowel Sounds, Soft. absent: Tenderness - Extremities Exam Extremities exam: full ROM, normal capillary refill, normal inspection, pedal pulses present - Back Exam Back exam: FULL ROM. absent: CVA tenderness (L), CVA tenderness (R) - Neurological Exam Neurological exam: Alert, CN II-XII Intact, Normal Gait, Oriented x3, Reflexes Normal - Psychiatric Exam Psychiatric exam: Normal Affect, Normal Mood - Skin Skin Exam: Dry, Normal Color, Warm Discharge Plan - Discharge Medications Prescriptions: Omeprazole 40 mg PO DAILY #30 ecc - Follow Up Plan Condition: GOOD Disposition: HOME/ ROUTINE Instructions: Abdominal Pain (ED), Jaundice (DC) Additional Instructions: ff up with Dr Quinones([facility] ) in 1 wk repeat LFT as outpt ff up pending labs with PMD Referrals: [facility] [Provider Group]
[2017-03-25 12:26] LABS: HEPATITIS B SURFACE AG NEGATIVE (NEGATIVE)
[2017-03-25 12:32] LABS: HEPATITIS A IGM NEGATIVE (NEGATIVE); HEPATITIS B CORE AB Negative (NEGATIVE)
[2017-03-25 12:43] LABS: HEPATITIS C ANTIBODY Negative (NEGATIVE)
== END 2017-03-25 12:19 | disposition home or self-care (01) | DRG 93 ==
LOC: H.ER 01:26 → H.ERHOLD 05:37 → H.MEDSURG1 07:30
PROVIDERS: ADMIT Internal Medicine; ATTEND Internal Medicine
DX: G89.29 Other chronic pain (principal); R74.0 Nonspecific elevation of levels of transaminase and lactic acid dehydrogenase [LDH]; R74.8 Abnormal levels of other serum enzymes

== ENCOUNTER 2017-03-29 06:09 | Inpatient (IN) | payer MEDICAID ==
[2017-03-29 06:10] VITALS: BMI 20.6
[2017-03-29] MEDS ORDERED: Sodium Chloride 0.9% 1,000 ML IV STA (07:26)
[2017-03-29 07:56] LABS: BASO % 0.6 % (0.0-2.0); EOS # 0.3 K/uL (0.0-0.7); EOS % 5.4 % (0.0-4.0); HEMOGLOBIN 14.3 g/dL (12.0-16.0); LYMPH # 1.1 K/uL (1.0-4.3); LYMPH % 20.5 % (20.0-40.0); MEAN CELL VOLUME 89.9 fl (81.0-99.0); MEAN CORPUSCULAR HGB CONC 33.4 g/dL (33.0-37.0); MEAN PLATELET VOLUME 8.5 fl (7.2-11.7); MONO # 0.5 K/uL (0.0-0.8); MONO % 8.6 % (0.0-10.0); NEUT # 3.6 K/uL (1.8-7.0); NEUT % 64.9 % (50.0-75.0); NRBC % 0.1 % (0.0-0.0); RBC 4.76 Mil/uL (3.80-5.20); WHITE BLOOD COUNT 5.6 K/uL (4.8-10.8)
[2017-03-29 08:09] LABS: ALB/GLOB RATIO 1.4 (1.0-2.1); ALBUMIN 4.6 g/dL (3.5-5.0); ALT/SGPT 818 U/L (9-52); AST/SGOT 446 U/L (14-36); BLOOD UREA NITROGEN 14 mg/dl (7-17); CALCIUM 9.5 mg/dL (8.4-10.2); GFR AFRICAN-AMERICAN > 60; GFR NON-AFRICAN AMERICAN > 60; LIPASE 188 U/L (23-300)
--- NOTE | 2017-03-29 08:11 | ED PDOC ---
HPI: Abdomen Time Seen by Provider: 03/29/17 07:10 Chief Complaint (Nursing): Abdominal Pain Chief Complaint (Provider): Abdominal Pain History Per: Patient History/Exam Limitations: no limitations Onset/Duration Of Symptoms: Days Outside of [place] travel?: No Current Symptoms Are (Timing): Still Present Quality Of Discomfort: "Pain" Associated Symptoms: denies: Nausea, Vomiting, Diarrhea, Chest Pain, Constipation, Urinary Symptoms Exacerbating Factors: None Alleviating Factors: None Additional Complaint(s): 21 year old female presents to the ED complaining of abdominal pain which began around 9pm last night. The patient reports that she was recently seen in the ED for similar symptoms and discharged with instructions to return to the ED if her symptoms returned. She states that she had a CT scan and US performed but the results from both were negative. Patient reports that she was not given an exact diagnosis but was told that she may have hepatitis. She reports that her abdominal pains. Denies nausea, vomiting, diarrhea, fevers, chills, chest pain, shortness of breath. Nausea, vomit, nonbloody. No diarrhea. No weakness. No back pain. No leg pain. Of note: Patient states that she has an appointment with her [employer] employee next week. PMD: [employer]: Dr. Saldana Abnormal Vaginal Bleeding: No Past Medical History Reviewed: Historical Data, Nursing Documentation, Vital Signs Vital Signs: Last Vital Signs Temp 97.5 F L 03/29/17 06:36 Pulse 100 H 03/29/17 06:36 Resp 16 03/29/17 06:36 BP 120/74 03/29/17 06:36 Pulse Ox 98 03/29/17 10:40 - Medical History PMH: Denies: HIV, Chronic Kidney Disease Other PMH: hepatitis - Surgical History Surgical History: No Surg Hx - Family History Family History: States: Unknown Family Hx - Social History Current smoker - smoking cessation education provided: No Ex-Smoker (has not smoked in the last 12 months): No Alcohol: None Drugs: Denies - Immunization History Hx Tetanus Toxoid Vaccination: No Hx Influenza Vaccination: No Hx Pneumococcal Vaccination: No - Home Medications Home Medications: Ambulatory Orders Medication Instructions Recorded Omeprazole 40 mg PO DAILY #30 ecc 03/24/17 - Allergies Allergies/Adverse Reactions: Allergies Allergy/AdvReac Type Severity Reaction Status Date / Time No Known Allergies Allergy Verified 02/26/16 17:24 Review of Systems ROS Statement: Except As Marked, All Systems Reviewed And Found Negative Constitutional: Negative for: Fever, Chills Cardiovascular: Negative for: Chest Pain Respiratory: Negative for: Shortness of Breath Gastrointestinal: Positive for: Nausea, Vomiting, Abdominal Pain Physical Exam - Reviewed Nursing Documentation Reviewed: Yes Vital Signs Reviewed: Yes - Physical Exam Appears: Positive for: Non-toxic, No Acute Distress Head Exam: Positive for: ATRAUMATIC, NORMAL INSPECTION, NORMOCEPHALIC Skin: Positive for: Normal Color, Warm, Dry. Negative for: Rash Eye Exam: Positive for: Normal appearance, EOMI, PERRL. Negative for: Nystagmus ENT: Positive for: Normal ENT Inspection. Negative for: Nasal Congestion, Tonsillar Exudate, Tonsillar Swelling Neck: Positive for: Normal, Painless ROM, Supple Cardiovascular/Chest: Positive for: Regular Rate, Rhythm, Chest Non Tender. Negative for: Tachycardia Respiratory: Positive for: Normal Breath Sounds. Negative for: Rhonchi, Wheezing, Respiratory Distress Gastrointestinal/Abdominal: Positive for: Bowel Sounds, Soft, Tenderness ( epigastric). Negative for: Mass, Guarding, Rebound Back: Positive for: Normal Inspection. Negative for: L CVA Tenderness, R CVA Tenderness, Vertebral Tenderness Extremity: Positive for: Normal ROM. Negative for: Tenderness, Deformity, Swelling Lymphatic: Positive for: Normal Exam. Negative for: Adenopathy Neurologic/Psych: Positive for: Alert, Oriented - Laboratory Results Result Diagrams: 03/29/17 07:35 03/29/17 07:35 Interpretation Of Abn Labs: elevated liver enzymes; elevated bilirubin - ECG O2 Sat by Pulse Oximetry: 98 (RA) Pulse Ox Interpretation: Normal - Progress ED Course And Treament: 1048: Stable. MRCP to be done. Spoke with Andrew. Will admit obs. Unable to get in touch with Dr. Saldana. Dr. Anna sauceda. Pain controlled. AAOx3. Medical Decision Making Medical Decision Makin Initial Impression 21 y/o female presenting with abdominal pain Initial Plan * CMP * Lipase * Upreg * Udip * CBC * Partial Thromboplastin * Prothrombin Time * NS 1000ml IV 1000mls/hr * Pepcid 20mg IVP * Zofran 4mg IV * Reevaluation Documented by Simin Chin acting as a scribe for Justin Childers MD. All medical record entries made by the Scribe were at my direction and personally dictated by me. I have reviewed the chart and agree that the record accurately reflects my personal performance of the history, physical exam, medical decision making, and the department course for this patient. I have also personally directed, reviewed, and agree with the discharge instructions and disposition. Disposition - Clinical Impression Clinical Impression: Abdominal pain, Liver enzyme elevation - Patient ED Disposition Is Patient to be Admitted: Yes Counseled Patient/Family Regarding: Studies Performed, Diagnosis - Disposition Disposition Time: 10:52 Condition: FAIR - Pt Status Changed To: Hospital Disposition Of: Observation - POA Present On Arrival: None
[2017-03-29 08:27] LABS: INR 1.2 (0.9-1.2); PROTHROMBIN TIME 13.5 Seconds (9.8-13.1)
[2017-03-29] MEDS: Sodium Chloride 0.9% 1,000 ML IV SCH ×2 (12:06→20:00)
--- NOTE | 2017-03-29 12:09 | MRI ---
PROCEDURE: Magnetic Resonance Cholangiopancreatography HISTORY: COMPARISON: None available. TECHNIQUE: Multiplanar, multisequence MR images of the abdomen were obtained, including heavily T2 weighted MRCP images of the biliary system. Rotating maximum intensity projection images of the biliary system were generated. FINDINGS: MRCP: No appreciable filling defect is noted in the common bile duct or proximal biliary ducts to suggest choledocholithiasis. No irregularity or outpouching of the ducts is noted. There is normal tapering of the distal common bile duct at the ampulla. Common bile duct measures 5 millimeters in maximal diameter. No gallstones are seen in the gallbladder. Cystic duct is otherwise unremarkable. LIVER: No new focal liver mass is noted when compare with the patient's prior CT scan. No appreciable intrahepatic ductal dilatation is noted there may once again be some mild periportal edema noted which could be related to infectious or inflammatory process and/or rapid hydration. No perihepatic ascites or collection is noted. GALLBLADDER: Unremarkable. SPLEEN: Unremarkable. PANCREAS: Unremarkable. ADRENALS: Unremarkable. KIDNEYS: Unremarkable. AORTA: No aneurysm. ASCITES: None. OTHER FINDINGS: Lung bases are unremarkable. No pleural effusion is seen. Visualized spine and marrow are unremarkable. Visualized bowel is within normal limits. IMPRESSION: MRCP images fail to reveal evidence of choledocholithiasis or appreciable stricture of a common bile duct. No gallstones are seen. Maximal diameter of the common bile duct is 5 millimeters, however there is normal tapering distally. There may be some mild persistent periportal edema identified in the liver which was seen on the prior CT scan dated 03/23/2017. This may suggest rapid rehydration. Inflammatory or infectious process cannot be excluded. No perihepatic collections or ascites. No evidence of pancreatitis or portal hypertension. Further clinical follow-up for the patient's abnormal liver function tests is suggested.
[2017-03-29 20:22] LABS: IRON 62 ug/dL (37-170)
[2017-03-29 20:31] LABS: % IRON SATURATION 21 % (20-55); TOTAL IRON BINDING CAPACITY 298 ug/dL (250-450)
[2017-03-30] MEDS: Sodium Chloride 0.9% 1,000 ML IV SCH (03:45)
--- NOTE | 2017-03-30 08:14 | CP.PCM.HP ---
History of Present Illness - History of Present Illness History of Present Illness: pt admitted for intractable n/v, epigastric pain and elevated lft. was dc 1/2 for same. abd us and ct from first visit and mrcp from yesterday reviewed and all normal. gi consult appriciated. pt still nauseated despite zofran. denies new foods, or precepitating events. Present on Admission - Present on Admission Any Indicators Present on Admission: No Review of Systems - Gastrointestinal Gastrointestinal: As Per HPI, Abdominal Pain, Nausea, Vomiting Past Patient History - Past Medical History & Family History Past Medical History?: No - Past Social History Smoking Status: Never Smoked - CARDIAC Hx Cardiac Disorders: No - PULMONARY Hx Respiratory Disorders: No - NEUROLOGICAL Hx Neurological Disorder: No - HEENT Hx HEENT Problems: No - RENAL Hx Chronic Kidney Disease: No - ENDOCRINE/METABOLIC Hx Endocrine Disorders: No - HEMATOLOGICAL/ONCOLOGICAL Hx Blood Disorders: No Hx Human Immunodeficiency Virus (HIV): No - INTEGUMENTARY Hx Dermatological Problems: No - MUSCULOSKELETAL/RHEUMATOLOGICAL Hx Musculoskeletal Disorders: No Hx Falls: No - GASTROINTESTINAL Hx Gastrointestinal Disorders: No Other/Comment: Chronic epigastric pain - GENITOURINARY/GYNECOLOGICAL Hx Genitourinary Disorders: No - PSYCHIATRIC Hx Psychophysiologic Disorder: No Hx Substance Use: No - SURGICAL HISTORY Hx Surgeries: No - ANESTHESIA Hx Anesthesia: No Meds Allergies/Adverse Reactions: Allergies Allergy/AdvReac Type Severity Reaction Status Date / Time No Known Allergies Allergy Verified 02/26/16 17:24 Physical Exam - Constitutional Appears: Well, Non-toxic, No Acute Distress - Head Exam Head Exam: ATRAUMATIC, NORMAL INSPECTION, NORMOCEPHALIC - Eye Exam Eye Exam: EOMI, Normal appearance, PERRL Pupil Exam: NORMAL ACCOMODATION, PERRL - ENT Exam ENT Exam: Mucous Membranes Moist, Normal Exam - Neck Exam Neck exam: Positive for: Normal Inspection - Respiratory Exam Respiratory Exam: Clear to Auscultation Bilateral, NORMAL BREATHING PATTERN - Cardiovascular Exam Cardiovascular Exam: REGULAR RHYTHM, RRR, +S1, +S2 - GI/Abdominal Exam GI & Abdominal Exam: Normal Bowel Sounds, Soft. absent: Tenderness - Extremities Exam Extremities exam: Positive for: full ROM, normal capillary refill, normal inspection, pedal pulses present - Back Exam Back exam: NORMAL INSPECTION - Neurological Exam Neurological exam: Alert, CN II-XII Intact, Normal Gait, Oriented x3, Reflexes Normal - Psychiatric Exam Psychiatric exam: Normal Affect, Normal Mood - Skin Skin Exam: Dry, Intact, Normal Color, Warm Results - Vital Signs Recent Vital Signs: Last Vital Signs Temp 98.5 F 03/30/17 07:54 Pulse 97 H 03/30/17 07:54 Resp 20 03/30/17 07:54 BP 109/71 03/30/17 07:54 Pulse Ox 96 03/30/17 07:54 - Labs Result Diagrams: 03/30/17 07:20 03/29/17 07:35 Labs: Laboratory Results - last 24 hr 03/29/17 03/29/17 03/29/17 07:35 16:39 16:39 PT 13.5 H INR 1.2 APTT 32.0 Iron 62 TIBC 298 % Saturation 21 Ferritin 34.4 Assessment & Plan (1) Nausea & vomiting Assessment and Plan: pepcid zofran, reglan po as holly gi pending labs Status: Acute (2) DVT prophylaxis Assessment and Plan: scd nad ae hose ambulation Status: Acute (3) Abdominal pain Assessment and Plan: pepcid po as holly gi pending labs bentyl/toradol Status: Acute (4) Liver enzyme elevation Assessment and Plan: mario acosta cmp pending labs ordered by gi pending hep panel pending ivf gi Status: Acute Decision To Admit - Pt Status Changed To: Hospital Disposition Of: Observation - . Bed Request Type: Med/Surg Admitting Physician: Rehan Martínez
--- NOTE | 2017-03-30 08:15 | DS ---
REFERRING PHYSICIAN: CATIE Deal, for the [facility]. HISTORY OF PRESENT ILLNESS: This is a very pleasant 21-year-old young lady who had been admitted here a week ago with 1-year history of upper abdominal pain and discomfort as well as abnormal LFTs. During that admission last week, an ultrasound and CAT scan were essentially unremarkable but she had a marked elevation of LFTs for unclear reasons. Some hepatic markers were ordered and were unremarkable. Patient came back once again with abdominal pain and discomfort and marked elevation of her LFTs again, same as it was last week. At the bedside, I discussed this with the patient as there is no family history for liver disease and she has no risk factors as she denies any drug use, alcohol, or any medications whatsoever being taken. The pain she gets in the upper abdomen is usually after meals and associated with bloating and occasional constipation. MEDICATIONS: She is on no medications at home. ALLERGIES: NO KNOWN DRUG ALLERGIES. PAST MEDICAL HISTORY: Unremarkable. PAST SURGICAL HISTORY: Noncontributory. FAMILY HISTORY: Unremarkable. SOCIAL HISTORY: Denies alcohol, tobacco, or drug use. PHYSICAL EXAMINATION: GENERAL: Well-developed, well-nourished, thin woman. Awake, alert, and oriented x3, in no acute distress. VITAL SIGNS: Stable. She is afebrile. ABDOMEN: Soft, flat. Positive bowel sounds. Nontender, nondistended. No hepatosplenomegaly is appreciated on exam. LABORATORY DATA: CBC is unremarkable. INR is 1.2. SMA-7 is unremarkable. Her LFTs are remarkable for total bilirubin of 2.4, AST of 446, ALT of 818, alkaline phosphatase of 146. Lipase is normal. She had an MRCP today, which is essentially unremarkable. IMPRESSION AND PLAN: A 21-year-old young lady who in the last week has had ultrasound, CAT scan and MRCP, all of which were essentially unremarkable; therefore, I doubt any underlying gallbladder pathology as the source of the abnormal LFTs. Given the normal series of imaging studies, the next step would be a percutaneous liver biopsy which can certainly be done as an outpatient or could be done while the patient is here. Other than that, I will repeat the enzymes tomorrow. I have ordered all the hepatic markers that were not done, such as, an alpha-1 antitrypsin, ceruloplasmin, and antimitochondrial antibody. All of the hepatic markers were done last week and they were unremarkable. Regarding the abdominal pain and discomfort, I think it has nothing to do with her liver disease. I started her back on a daily proton pump inhibitor and I have added Bentyl 10 mg half hour prior to each meal to see if this helps with her pain and discomfort, which I think is spastic in nature and I will follow this case along with you. Thank you very much for the referral. Arnol Renee MD
[2017-03-30 08:20] LABS: BASO % 0.3 % (0.0-2.0); EOS # 0.2 K/uL (0.0-0.7); EOS % 2.1 % (0.0-4.0); HEMOGLOBIN 14.1 g/dL (12.0-16.0); LYMPH % 12.3 % (20.0-40.0); MEAN CELL VOLUME 90.5 fl (81.0-99.0); MEAN CORPUSCULAR HEMOGLOBIN 30.3 pg (27.0-31.0); MEAN CORPUSCULAR HGB CONC 33.5 g/dL (33.0-37.0); MEAN PLATELET VOLUME 8.6 fl (7.2-11.7); MONO # 0.3 K/uL (0.0-0.8); MONO % 3.9 % (0.0-10.0); NEUT # 6.5 K/uL (1.8-7.0); NEUT % 81.4 % (50.0-75.0); NRBC % 0.1 % (0.0-0.0); RBC 4.65 Mil/uL (3.80-5.20); RED CELL DISTRIBUTION WIDTH 13.3 % (11.5-14.5)
[2017-03-30] MEDS: Pantoprazole 40 mg EC Tab PO SCH (08:39)
[2017-03-30 08:49] LABS: BLOOD UREA NITROGEN 5 mg/dl (7-17); GFR AFRICAN-AMERICAN > 60; GFR NON-AFRICAN AMERICAN > 60
[2017-03-30 08:50] LABS: ALB/GLOB RATIO 1.2 (1.0-2.1); ALT/SGPT 598 U/L (9-52); AST/SGOT 213 U/L (14-36); CALCIUM 8.8 mg/dL (8.4-10.2)
[2017-03-31 06:27] LABS: HEMOGLOBIN 12.4 g/dL (12.0-16.0); MEAN CELL VOLUME 90.4 fl (81.0-99.0); MEAN CORPUSCULAR HEMOGLOBIN 30.2 pg (27.0-31.0); MEAN CORPUSCULAR HGB CONC 33.3 g/dL (33.0-37.0); RBC 4.12 Mil/uL (3.80-5.20); RED CELL DISTRIBUTION WIDTH 13.4 % (11.5-14.5); WHITE BLOOD COUNT 5.4 K/uL (4.8-10.8)
[2017-03-31 06:38] LABS: ALB/GLOB RATIO 1.1 (1.0-2.1); ALBUMIN 3.1 g/dL (3.5-5.0); ALT/SGPT 420 U/L (9-52); AST/SGOT 122 U/L (14-36); BLOOD UREA NITROGEN 4 mg/dl (7-17); CALCIUM 8.6 mg/dL (8.4-10.2); GFR AFRICAN-AMERICAN > 60; GFR NON-AFRICAN AMERICAN > 60
[2017-03-31 06:41] LABS: INR 1.3 (0.9-1.2); PARTIAL THROMBOPLASTIN TIME 30.9 Seconds (25.6-37.1); PROTHROMBIN TIME 14.1 Seconds (9.8-13.1)
[2017-03-31 07:47] VITALS: O2SAT 100
--- NOTE | 2017-03-31 07:59 | CP.PCM.PN ---
Subjective - Date & Time of Evaluation Date of Evaluation: 03/31/17 Time of Evaluation: 07:57 - Subjective Subjective: pt denies f/c, n/v/d. no pain. lft trendign down, bili remains same. for liver bx today, npo p midnight. Objective - Vital Signs/Intake and Output Vital Signs (last 24 hours): Temp Pulse Resp BP Pulse Ox 97.8 F 89 20 123/85 100 03/31/17 07:46 03/31/17 07:46 03/31/17 07:46 03/31/17 07:46 03/31/17 07:46 - Medications Medications: Current Medications Dicyclomine HCl (Bentyl) 10 mg PO 0730,1130,1630,2200 [facility] Last Admin: 03/30/17 21:23 Dose: 10 mg Ketorolac Tromethamine (Toradol) 15 mg IVP Q6 PRN PRN Reason: Pain, moderate (4-7) Last Admin: 03/30/17 08:35 Dose: 15 mg Metoclopramide HCl (Reglan) 10 mg IVP Q6 PRN PRN Reason: Nausea/Vomiting Last Admin: 03/30/17 08:32 Dose: 10 mg Ondansetron HCl (Zofran Inj) 4 mg IVP Q6 PRN PRN Reason: Nausea/Vomiting Last Admin: 03/30/17 03:39 Dose: 4 mg Pantoprazole Sodium (Protonix Ec Tab) 40 mg PO DAILY [facility] Last Admin: 03/30/17 08:39 Dose: 40 mg - Labs Labs: 03/31/17 05:45 03/31/17 05:45 PT 14.1 Seconds (9.8-13.1) H 03/31/17 05:45 INR 1.3 (0.9-1.2) H 03/31/17 05:45 APTT 30.9 Seconds (25.6-37.1) 03/31/17 05:45 - Constitutional Appears: Well, Non-toxic, No Acute Distress - Head Exam Head Exam: ATRAUMATIC, NORMAL INSPECTION, NORMOCEPHALIC - Eye Exam Eye Exam: EOMI, Normal appearance, PERRL Pupil Exam: NORMAL ACCOMODATION, PERRL - ENT Exam ENT Exam: Mucous Membranes Moist, Normal Exam - Neck Exam Neck Exam: Full ROM, Normal Inspection. absent: Lymphadenopathy - Respiratory Exam Respiratory Exam: Clear to Ausculation Bilateral, NORMAL BREATHING PATTERN - Cardiovascular Exam Cardiovascular Exam: REGULAR RHYTHM, RRR, +S1, +S2. absent: Murmur - GI/Abdominal Exam GI & Abdominal Exam: Soft, Normal Bowel Sounds. absent: Tenderness - Extremities Exam Extremities Exam: Full ROM, Normal Capillary Refill, Normal Inspection. absent : Joint Swelling, Pedal Edema - Back Exam Back Exam: NORMAL INSPECTION - Neurological Exam Neurological Exam: Alert, Awake, CN II-XII Intact, Normal Gait, Oriented x3 - Psychiatric Exam Psychiatric exam: Normal Affect, Normal Mood - Skin Skin Exam: Dry, Intact, Normal Color, Warm Assessment and Plan (1) Nausea & vomiting Status: Acute (2) DVT prophylaxis Status: Acute (3) Abdominal pain Status: Acute (4) Liver enzyme elevation Status: Acute - Assessment and Plan (Free Text) Assessment: (1) Nausea & vomiting Assessment and Plan: pepcid zofran, reglan po as holly gi pending labs Status: Acute (2) DVT prophylaxis Assessment and Plan: scd nad ae hose ambulation Status: Acute (3) Abdominal pain Assessment and Plan: pepcid po as holly gi no pain today bentyl/toradol Status: Acute (4) Liver enzyme elevation Assessment and Plan: karla, mario cmp pending labs ordered by gi pending hep panel pending ivf gi liver bx today Status: Acute
[2017-03-31] MEDS: Pantoprazole 40 mg EC Tab PO SCH (09:44)
--- NOTE | 2017-03-31 10:01 | CP.PCM.PN ---
Subjective - Date & Time of Evaluation Date of Evaluation: 03/31/17 Time of Evaluation: 09:59 - Subjective Subjective: doing well Objective - Vital Signs/Intake and Output Vital Signs (last 24 hours): Temp Pulse Resp BP Pulse Ox 97.8 F 89 20 123/85 100 03/31/17 07:46 03/31/17 07:46 03/31/17 07:46 03/31/17 07:46 03/31/17 07:46 - Medications Medications: Current Medications Dicyclomine HCl (Bentyl) 10 mg PO 0730,1130,1630,2200 [facility] Last Admin: 03/31/17 08:02 Dose: 10 mg Ketorolac Tromethamine (Toradol) 15 mg IVP Q6 PRN PRN Reason: Pain, moderate (4-7) Last Admin: 03/31/17 08:49 Dose: 15 mg Metoclopramide HCl (Reglan) 10 mg IVP Q6 PRN PRN Reason: Nausea/Vomiting Last Admin: 03/30/17 08:32 Dose: 10 mg Ondansetron HCl (Zofran Inj) 4 mg IVP Q6 PRN PRN Reason: Nausea/Vomiting Last Admin: 03/30/17 03:39 Dose: 4 mg Pantoprazole Sodium (Protonix Ec Tab) 40 mg PO DAILY [facility] Last Admin: 03/31/17 09:44 Dose: Not Given - Labs Labs: 03/31/17 05:45 03/31/17 05:45 PT 14.1 Seconds (9.8-13.1) H 03/31/17 05:45 INR 1.3 (0.9-1.2) H 03/31/17 05:45 APTT 30.9 Seconds (25.6-37.1) 03/31/17 05:45 - Neck Exam Neck Exam: Normal Inspection - Respiratory Exam Respiratory Exam: Clear to Ausculation Bilateral - Cardiovascular Exam Cardiovascular Exam: REGULAR RHYTHM - GI/Abdominal Exam GI & Abdominal Exam: Normal Bowel Sounds Assessment and Plan - Assessment and Plan (Free Text) Assessment: 21 yo female with elevated lft GB dyskinesia versus SOD versus intrinsic liver disease liver bx pending
[2017-03-31] MEDS ORDERED: Lidocaine 1% Inj (20ml) ONE (12:39)
[2017-03-31] MEDS ORDERED: Absorbable Gelatin Sponge Size 12-7 ONE (12:39)
[2017-03-31] MEDS ORDERED: Midazolam 2 MG/2 ML VIAL ONE (13:05)
[2017-03-31 13:07] LABS: GAMMA GLUTAMYL TRANSPEPTIDASE 415 U/L (8-78)
--- NOTE | 2017-03-31 13:45 | PCM.SURG1 ---
Surgeon's Initial Post Op Note - Surgeon's Notes Surgeon: El Frias MD Director Of Campus Recreation: None Type of Anesthesia: MAC Pre-Operative Diagnosis: Transaminitis Operative Findings: liver wnl, minimal gb sludge Post-Operative Diagnosis: same Operation Performed: US guided liver biopsy Specimen/Specimens Removed: 18 gauge core of right hepatic lobe x2 Estimated Blood Loss: EBL {In ML}: 5 Date of Surgery/Procedure: 03/31/17 Time of Surgery/Procedure: 13:45
[2017-03-31] MEDS ORDERED: Sodium Chloride 0.9% 1,000 ML IV ONE (13:50)
[2017-03-31] MEDS ORDERED: Sodium Chloride 0.9% 1,000 ML IV SCH (14:15)
--- NOTE | 2017-03-31 15:10 | CT ---
PROCEDURE: ULTRASOUND-GUIDED LIVER BIOPSY CLINICAL HISTORY: 21-year-old female with elevated liver function tests is referred to Interventional Radiology for percutaneous image-guided core needle biopsy of the liver. COMPARISON: Correlation is made to recent abdominal ultrasound, CT scan of the abdomen and pelvis and MRCP. PROCEDURE: 1. Focused ultrasound of the right hepatic lobe. 2. Ultrasound-guided core needle biopsy of the right hepatic lobe. PRE-PROCEDURE FINDINGS: 1. Normal hepatic echogenicity without mass lesion or biliary ductal dilatation; small amount of gallbladder sludge. POST-PROCEDURE FINDINGS: 1. No evidence of post-procedural complication. INTERVENTIONAL RADIOLOGIST: El Frias M.D. (the attending was present for the entire procedure) ANESTHESIA: Provided by the attending anesthesiologist. Sedation was supervised by the anesthesiology attending with the presence of independent radiology nursing monitoring. Physiological data monitoring was performed throughout the entire procedure. The patient's blood pressure, EKG and pulse oximetry were recorded. The patient tolerated the procedure and sedation without untoward reactions. The intra-procedural sedation time was 10 minutes. MEDICATIONS: Lidocaine 1% for local subcutaneous analgesia. COMPLICATIONS: None. PROCEDURE DESCRIPTION AND FINDINGS: The risks, benefits, alternatives and possible complications of the procedure were fully discussed; all questions were answered and informed consent was obtained. The patient was brought into the interventional suite and a pre-procedure 'time-out' was performed. The patient was placed on the ultrasound table in the supine position. The lesion was localized under ultrasound-guidance and a manav was made on the skin site overlying the lesion. The right upper quadrant was prepped and draped in the usual sterile fashion. Maximum sterile barrier precautions were maintained throughout the entire procedure. Preliminary focused ultrasound images of the right upper quadrant again demonstrate normal hepatic echogenicity without mass lesion or biliary ductal dilatation. A small amount of gallbladder sludge is noted. Following subcutaneous infiltration of lidocaine 1% for local analgesia, under ultrasound-guidance, a 17-gauge trocar needle was advanced into the right hepatic lobe. The ultrasound images were permanently recorded and submitted to the PACS. The inner stylet was carefully removed. An 18-gauge biopsy device was coaxially loaded into the introducer needle and a total of 2 core needle biopsies were obtained. The biopsy device and trocar needle were removed. Adequate hemostasis was achieved utilizing manual compression. A sterile adhesive dressing was applied over the puncture site. Post-procedure imaging demonstrated no complications. The patient tolerated the procedure well without immediate post-procedure complications and was transferred to the interventional radiology recovery area in stable condition. IMPRESSION: Successful ultrasound-guided core needle biopsy of the right hepatic lobe. A total of 2 samples were obtained.
[2017-03-31 15:24] VITALS: BP 104/65; PULSE 79; RESP 18; TEMP 98.5
[2017-03-31 19:26] LABS: HEPATITIS B SURFACE AG NEGATIVE (NEGATIVE)
[2017-03-31 19:31] LABS: HEPATITIS A IGM NEGATIVE (NEGATIVE); HEPATITIS B CORE AB Negative (NEGATIVE)
[2017-03-31 19:43] LABS: HEPATITIS C ANTIBODY Negative (NEGATIVE)
--- NOTE | 2017-04-01 06:31 | CP.PCM.DIS ---
Provider - Provider Date of Admission: 03/30/17 15:00 Attending physician: Rehan Martínez MD Time Spent in preparation of Discharge (in minutes): 30 Diagnosis - Discharge Diagnosis (1) Nausea & vomiting Status: Acute (2) DVT prophylaxis Status: Acute (3) Abdominal pain Status: Acute (4) Liver enzyme elevation Status: Acute Hospital Course - Lab Results Lab Results: Most Recent Lab Values WBC 5.4 K/uL (4.8-10.8) 03/31/17 05:45 RBC 4.12 Mil/uL (3.80-5.20) 03/31/17 05:45 Hgb 12.4 g/dL (12.0-16.0) 03/31/17 05:45 Hct 37.3 % (34.0-47.0) 03/31/17 05:45 MCV 90.4 fl (81.0-99.0) 03/31/17 05:45 MCH 30.2 pg (27.0-31.0) 03/31/17 05:45 MCHC 33.3 g/dL (33.0-37.0) 03/31/17 05:45 RDW 13.4 % (11.5-14.5) 03/31/17 05:45 Plt Count 180 K/uL (130-400) 03/31/17 05:45 MPV 8.6 fl (7.2-11.7) 03/30/17 07:20 Neut % (Auto) 81.4 % (50.0-75.0) H 03/30/17 07:20 Lymph % (Auto) 12.3 % (20.0-40.0) L 03/30/17 07:20 Walton % (Auto) 3.9 % (0.0-10.0) 03/30/17 07:20 Eos % (Auto) 2.1 % (0.0-4.0) 03/30/17 07:20 Baso % (Auto) 0.3 % (0.0-2.0) 03/30/17 07:20 Neut # 6.5 K/uL (1.8-7.0) 03/30/17 07:20 Lymph # 1.0 K/uL (1.0-4.3) 03/30/17 07:20 Walton # 0.3 K/uL (0.0-0.8) 03/30/17 07:20 Eos # 0.2 K/uL (0.0-0.7) 03/30/17 07:20 Baso # 0.0 K/uL (0.0-0.2) 03/30/17 07:20 PT 14.1 Seconds (9.8-13.1) H 03/31/17 05:45 INR 1.3 (0.9-1.2) H 03/31/17 05:45 APTT 30.9 Seconds (25.6-37.1) 03/31/17 05:45 Sodium 139 mmol/l (132-148) 03/31/17 05:45 Potassium 3.7 MMOL/L (3.6-5.0) 03/31/17 05:45 Chloride 109 mmol/L (98-107) H 03/31/17 05:45 Carbon Dioxide 21 mmol/L (22-30) L 03/31/17 05:45 Anion Gap 13 (10-20) 03/31/17 05:45 BUN 4 mg/dl (7-17) L 03/31/17 05:45 Creatinine 0.5 mg/dl (0.7-1.2) L 03/31/17 05:45 Est GFR ( Amer) > 60 03/31/17 05:45 Est GFR (Non-Af Amer) > 60 03/31/17 05:45 Random Glucose 72 mg/dL (65-105) 03/31/17 05:45 Calcium 8.6 mg/dL (8.4-10.2) 03/31/17 05:45 Iron 62 ug/dL (37-170) 03/29/17 16:39 TIBC 298 ug/dL (250-450) 03/29/17 16:39 % Saturation 21 % (20-55) 03/29/17 16:39 Ferritin 34.4 ng/Ml (6.24-137.0) 03/29/17 16:39 Total Bilirubin 3.4 mg/dl (0.2-1.3) H 03/31/17 05:45 Direct Bilirubin 2.6 mg/ml (0.0-0.4) H 03/31/17 09:33 GGT 415 U/L (8-78) H 03/30/17 07:20 AST 122 U/L (14-36) H D 03/31/17 05:45 ALT 420 U/L (9-52) H D 03/31/17 05:45 Alkaline Phosphatase 102 U/L (38-126) 03/31/17 05:45 Total Protein 6.0 G/DL (6.3-8.2) L 03/31/17 05:45 Albumin 3.1 g/dL (3.5-5.0) L D 03/31/17 05:45 Globulin 2.9 gm/dL (2.2-3.9) 03/31/17 05:45 Albumin/Globulin Ratio 1.1 (1.0-2.1) 03/31/17 05:45 Lipase 188 U/L (23-300) 03/29/17 07:35 Anti-Mitochondrial Ab Negative (Negative) 03/29/17 16:39 Hepatitis A IgM Ab Negative (NEGATIVE) 03/29/17 13:30 Hep Bs Antigen Negative (NEGATIVE) 03/29/17 13:30 Hep B Core IgM Ab Negative (NEGATIVE) 03/29/17 13:30 Hepatitis C Antibody Negative (NEGATIVE) 03/29/17 13:30 Discharge Exam - Head Exam Head Exam: ATRAUMATIC, NORMAL INSPECTION, NORMOCEPHALIC Discharge Plan - Discharge Medications Prescriptions: Dicyclomine [Bentyl] 10 mg PO 0730,1130,1630,2200 #30 cap Ondansetron [Zofran Odt] 4 mg PO Q8 PRN #30 tab.rapdis PRN Reason: Nausea/Vomiting - Follow Up Plan Condition: FAIR Disposition: HOME/ ROUTINE Instructions: Dicyclomine (By mouth), Ondansetron (By mouth), Percutaneous Liver Biopsy (DC), Acute Abdominal Pain (DC) Additional Instructions: call for a follow up appt in [facility] in 2 days final dx-transaminitis, n/v, epigastric pain f/u liver bx, rted prn, meds per med rec dc after dinner holly po and w/o bleeding/pain. f/u rmg and gi Referrals: Isaías Forrest MD, PhD [Staff Provider] - Andrew Briceno, DNP, [facility] [Advanced Practice Nurse] -
[2017-04-01 09:15] LABS: CERULOPLASMIN 26 mg/dL (18-53)
== END 2017-03-31 19:40 | disposition home or self-care (01) | DRG 948 ==
LOC: H.ER 06:09 → H.ERHOLD 10:45 → H.MEDSURG1 12:25 → OBSVTOIN 03-30 15:00
PROVIDERS: ADMIT Family Medicine; ATTEND Family Medicine
PROC: 0FB13ZX Excision of Right Lobe Liver, Percutaneous Approach, Diagnostic (ICD-10-PCS; principal; 2017-03-31 12:30)
DX: R74.0 Nonspecific elevation of levels of transaminase and lactic acid dehydrogenase [LDH] (principal); R10.13 Epigastric pain; R11.2 Nausea with vomiting, unspecified; R74.8 Abnormal levels of other serum enzymes

== ENCOUNTER 2017-04-06 22:01 | Inpatient (IN) | payer MEDICAID ==
[2017-04-06 22:01] VITALS: BMI 20.6
[2017-04-06] MEDS ORDERED: Morphine 4 MG/ML VIAL IVP ONE (22:29)
[2017-04-06] MEDS ORDERED: Sodium Chloride 0.9% 1,000 ML IV STA ×2 (22:29→23:26)
[2017-04-06] MEDS ORDERED: Morphine 4 MG/ML VIAL ONE (22:53)
[2017-04-06 23:04] LABS: BASO % 0.4 % (0.0-2.0); EOS # 0.2 K/uL (0.0-0.7); HEMOGLOBIN 13.8 g/dL (12.0-16.0); LYMPH # 0.9 K/uL (1.0-4.3); MEAN CELL VOLUME 89.6 fl (81.0-99.0); MEAN CORPUSCULAR HEMOGLOBIN 30.2 pg (27.0-31.0); MEAN CORPUSCULAR HGB CONC 33.7 g/dL (33.0-37.0); MEAN PLATELET VOLUME 8.4 fl (7.2-11.7); MONO # 0.6 K/uL (0.0-0.8); MONO % 7.1 % (0.0-10.0); NEUT # 6.5 K/uL (1.8-7.0); NEUT % 78.5 % (50.0-75.0); NRBC % 0.1 % (0.0-0.0); RBC 4.55 Mil/uL (3.80-5.20); WHITE BLOOD COUNT 8.3 K/uL (4.8-10.8)
[2017-04-06 23:19] LABS: SQUAMOUS EPITHIAL 9 /hpf (0-5); URINE BACTERIA MANY (<OCC); URINE BILIRUBIN NEGATIVE (NEGATIVE); URINE BLOOD NEGATIVE (NEGATIVE); URINE CALCIUM OXALATE CRYSTALS OCC /hpf (<OCC); URINE CLARITY CLOUDY (Clear); URINE COLOR YELLOW (YELLOW); URINE GLUCOSE (UA) NEG (Normal); URINE LEUKOCYTE ESTERASE NEG Leu/uL (Negative); URINE NITRATE NEGATIVE (NEGATIVE); URINE PROTEIN NEGATIVE (NEGATIVE); URINE UROBILINOGEN 0.2-1.0 mg/dL (0.2-1.0)
[2017-04-06 23:21] LABS: ALB/GLOB RATIO 1.3 (1.0-2.1); ALT/SGPT 398 U/L (9-52); AST/SGOT 378 U/L (14-36); BLOOD UREA NITROGEN 9 mg/dl (7-17); CALCIUM 9.6 mg/dL (8.4-10.2); GFR AFRICAN-AMERICAN > 60; GFR NON-AFRICAN AMERICAN > 60; LIPASE 833 U/L (23-300)
--- NOTE | 2017-04-07 00:26 | ED PDOC ---
HPI: Abdomen Time Seen by Provider: 04/06/17 22:13 Chief Complaint (Nursing): Abdominal Pain Chief Complaint (Provider): Abdominal Pain History Per: Patient History/Exam Limitations: no limitations Onset/Duration Of Symptoms: Days (x1) Current Symptoms Are (Timing): Still Present Additional Complaint(s): 21 year old female with previous medical history of transaminitis, who presents to the emergency department with a complaint of severe upper right-sided abdominal pain associated with nausea status post eating macaroni with cheese and lobster around 1600 today. Denied any fever, chills, vomiting, diarrhea, chest pain, cough or shortness of breath. Patient stated she has a pending transcutaneous liver procedure on 04/08/17. PMD: [facility] Past Medical History Reviewed: Historical Data, Nursing Documentation, Vital Signs Vital Signs: Last Vital Signs Temp 98.3 F 04/07/17 00:46 Pulse 88 04/07/17 00:46 Resp 19 04/07/17 00:46 BP 113/71 04/07/17 00:46 Pulse Ox 100 04/07/17 00:46 - Medical History PMH: Chronic Pain (epigastric) Denies: HIV, Chronic Kidney Disease - Surgical History Surgical History: No Surg Hx - Family History Family History: States: Unknown Family Hx - Social History Current smoker - smoking cessation education provided: No Ex-Smoker (has not smoked in the last 12 months): No Alcohol: None Drugs: Denies - Immunization History Hx Tetanus Toxoid Vaccination: No Hx Influenza Vaccination: No Hx Pneumococcal Vaccination: No - Home Medications Home Medications: Ambulatory Orders Medication Instructions Recorded Omeprazole 40 mg PO DAILY #30 ecc 03/24/17 Dicyclomine [Bentyl] 10 mg PO 0730,1130,1630,2200 #30 03/31/17 cap Ondansetron [Zofran Odt] 4 mg PO Q8 PRN #30 tab.rapdis 03/31/17 - Allergies Allergies/Adverse Reactions: Allergies Allergy/AdvReac Type Severity Reaction Status Date / Time No Known Allergies Allergy Verified 02/26/16 17:24 Review of Systems ROS Statement: Except As Marked, All Systems Reviewed And Found Negative Constitutional: Negative for: Fever, Chills Cardiovascular: Negative for: Chest Pain Respiratory: Negative for: Cough, Shortness of Breath Gastrointestinal: Positive for: Nausea, Abdominal Pain (upper right). Negative for: Vomiting, Diarrhea Physical Exam - Reviewed Nursing Documentation Reviewed: Yes Vital Signs Reviewed: Yes - Physical Exam Appears: Positive for: Well, Non-toxic, No Acute Distress Head Exam: Positive for: ATRAUMATIC, NORMAL INSPECTION, NORMOCEPHALIC Skin: Positive for: Normal Color Eye Exam: Positive for: Normal appearance ENT: Positive for: Normal ENT Inspection Neck: Positive for: Normal, Painless ROM Cardiovascular/Chest: Positive for: Regular Rate, Rhythm, Chest Non Tender Respiratory: Positive for: Normal Breath Sounds. Negative for: Decreased Breath Sounds, Wheezing, Respiratory Distress Gastrointestinal/Abdominal: Positive for: Soft, Tenderness (epigastric and RUQ) . Negative for: Normal Exam Extremity: Positive for: Normal ROM (upper/lower). Negative for: Pedal Edema ( bilateral), Calf Tenderness (bilateral) Neurologic/Psych: Positive for: Alert (x3), Oriented - Laboratory Results Result Diagrams: 04/06/17 22:57 04/06/17 22:57 Medical Decision Making Medical Decision Making: Initial Impression: Acute epigastric pain Initial Plan: * EKG * CMP * Lipase * Urine * Urine dipstick * CBC * Morphine 4mg IVP * NS 1,000ml IV per 1,000mls/hr * Pepcid 20mg IV * Zofran inj 4mg IV * Urinalysis __ Time: 2358 --Labs: significant elevated lipase at 833 and LFT, compared to recent bloodwork. --Discussed case with Andrew De La Fuente APN. Time: 8 --Upon provider reevaluation, patient is medically stable and requires no further treatment in the ED at this time. Patient will be admitted to the hospital for further treatment. Counseling was provided and all questions were answered regarding diagnosis and need for follow up. There is agreement to discharge plan. Return if symptoms persist or worsen. Clinical Impression: Pancreatitis Scribe Attestation: Documented by Anne Hamilton, acting as a scribe for Blake Harmon MD. Provider Scribe Attestation: All medical record entries made by the Scribe were at my direction and personally dictated by me. I have reviewed the chart and agree that the record accurately reflects my personal performance of the history, physical exam, medical decision making, and the department course for this patient. I have also personally directed, reviewed, and agree with the discharge instructions and disposition. Disposition - Clinical Impression Clinical Impression: Pancreatitis - Patient ED Disposition Is Patient to be Admitted: Yes Discussed With Dr.: Andrew Briceno Doctor Will See Patient In The: Hospital Counseled Patient/Family Regarding: Studies Performed, Diagnosis, Need For Followup - Disposition Disposition Time: 00:09 Condition: FAIR
[2017-04-07] MEDS ORDERED: Morphine 4 MG/ML VIAL IVP PRN (01:42)
--- NOTE | 2017-04-07 07:32 | CP.PCM.HP ---
History of Present Illness - History of Present Illness History of Present Illness: pt admitted for n/v, epigstric pain, had elev lipase w/ elev lft. has had elev lft previously but no lipase. liver bx pending. no f/c, n/v/d, pain at present. bw noted. am labs pending Present on Admission - Present on Admission Any Indicators Present on Admission: No Review of Systems - Gastrointestinal Gastrointestinal: As Per HPI, Abdominal Pain, Nausea, Vomiting Past Patient History - Past Medical History & Family History Past Medical History?: No - Past Social History Smoking Status: Never Smoked - CARDIAC Hx Cardiac Disorders: No - PULMONARY Hx Respiratory Disorders: No - NEUROLOGICAL Hx Neurological Disorder: No - HEENT Hx HEENT Problems: No - RENAL Hx Chronic Kidney Disease: No - ENDOCRINE/METABOLIC Hx Endocrine Disorders: No - HEMATOLOGICAL/ONCOLOGICAL Hx Human Immunodeficiency Virus (HIV): No - INTEGUMENTARY Hx Dermatological Problems: No - MUSCULOSKELETAL/RHEUMATOLOGICAL Hx Musculoskeletal Disorders: No Hx Falls: No - GASTROINTESTINAL Hx Gastrointestinal Disorders: Yes (transaminitis) Other/Comment: Chronic epigastric pain - GENITOURINARY/GYNECOLOGICAL Hx Genitourinary Disorders: No - PSYCHIATRIC Hx Psychophysiologic Disorder: No Hx Substance Use: No - SURGICAL HISTORY Hx Surgeries: No - ANESTHESIA Hx Anesthesia: Yes Hx Anesthesia Reactions: No Hx Malignant Hyperthermia: No Has any member of the family had a problem w/ anesthesia?: No Meds Allergies/Adverse Reactions: Allergies Allergy/AdvReac Type Severity Reaction Status Date / Time No Known Allergies Allergy Verified 02/26/16 17:24 Physical Exam - Constitutional Appears: Well, Non-toxic, No Acute Distress - Head Exam Head Exam: ATRAUMATIC, NORMAL INSPECTION, NORMOCEPHALIC - Eye Exam Eye Exam: EOMI, Normal appearance, PERRL Pupil Exam: NORMAL ACCOMODATION, PERRL - ENT Exam ENT Exam: Mucous Membranes Moist, Normal Exam - Neck Exam Neck exam: Positive for: Normal Inspection - Respiratory Exam Respiratory Exam: Clear to Auscultation Bilateral, NORMAL BREATHING PATTERN - Cardiovascular Exam Cardiovascular Exam: REGULAR RHYTHM, RRR, +S1, +S2 - GI/Abdominal Exam GI & Abdominal Exam: Normal Bowel Sounds, Soft. absent: Tenderness - Extremities Exam Extremities exam: Positive for: full ROM, normal capillary refill, normal inspection, pedal pulses present - Back Exam Back exam: NORMAL INSPECTION - Neurological Exam Neurological exam: Alert, CN II-XII Intact, Normal Gait, Oriented x3, Reflexes Normal - Psychiatric Exam Psychiatric exam: Normal Affect, Normal Mood - Skin Skin Exam: Dry, Intact, Normal Color, Warm Results - Vital Signs Recent Vital Signs: Last Vital Signs Temp 98.2 F 04/07/17 01:41 Pulse 98 H 04/07/17 02:26 Resp 18 04/07/17 02:26 BP 111/78 04/07/17 01:41 Pulse Ox 99 04/07/17 02:26 - Labs Result Diagrams: 04/06/17 22:57 04/06/17 22:57 Labs: Laboratory Results - last 24 hr 04/06/17 04/06/17 04/06/17 22:57 22:57 22:57 WBC 8.3 D RBC 4.55 Hgb 13.8 Hct 40.8 MCV 89.6 MCH 30.2 MCHC 33.7 RDW 14.0 Plt Count 258 MPV 8.4 Neut % (Auto) 78.5 H Lymph % (Auto) 11.0 L [place] % (Auto) 7.1 Eos % (Auto) 3.0 Baso % (Auto) 0.4 Neut # 6.5 Lymph # 0.9 L [place] # 0.6 Eos # 0.2 Baso # 0.0 Sodium 140 Potassium 3.8 Chloride 104 Carbon Dioxide 27 Anion Gap 13 BUN 9 Creatinine 0.5 L Est GFR ( Amer) > 60 Est GFR (Non-Af Amer) > 60 Random Glucose 107 H Calcium 9.6 Total Bilirubin 1.5 H AST 378 H D ALT 398 H Alkaline Phosphatase 136 H D Total Protein 7.1 Albumin 4.0 Globulin 3.2 Albumin/Globulin Ratio 1.3 Lipase 833 H Urine Color Yellow Urine Clarity Cloudy Urine pH 8.0 Ur Specific [place] 1.012 Urine Protein Negative Urine Glucose (UA) Neg Urine Ketones Negative Urine Blood Negative Urine Nitrate Negative Urine Bilirubin Negative Urine Urobilinogen 0.2-1.0 Ur Leukocyte Esterase Neg Urine RBC (Auto) 4 H Urine Microscopic WBC 5 Ur Squamous Epith Cells 9 H Calcium Oxalate Crystal Occ H Urine Bacteria Many H Assessment & Plan (1) Pancreatitis Assessment and Plan: gi ivf cld, adv as holly pain and nausea control Status: Acute (2) DVT prophylaxis Assessment and Plan: scd and ae hose ambulation Status: Acute (3) Liver enzyme elevation Assessment and Plan: pending liver bx, ivf monitor gi Status: Acute (4) Nausea & vomiting Assessment and Plan: zofran, omeprazole Status: Acute Decision To Admit - Pt Status Changed To: Hospital Disposition Of: Inpatient - Admit Certification Admit to Inpatient:: After my assessment, the patient will require hospitalization for at least two midnights. This is because of the severity of symptoms shown, intensity of services needed, and/or the medical risk in this patient being treated as an outpatient. - . Bed Request Type: Med/Surg Admitting Physician: Rehan Martínez
[2017-04-07 07:58] VITALS: BP 127/75; PULSE 74; RESP 20; TEMP 98.4; O2SAT 98
[2017-04-07 08:18] LABS: BASO % 0.7 % (0.0-2.0); EOS # 0.3 K/uL (0.0-0.7); EOS % 5.4 % (0.0-4.0); HEMOGLOBIN 12.2 g/dL (12.0-16.0); LYMPH # 1.3 K/uL (1.0-4.3); LYMPH % 23.7 % (20.0-40.0); MEAN CORPUSCULAR HGB CONC 33.3 g/dL (33.0-37.0); MEAN PLATELET VOLUME 8.5 fl (7.2-11.7); MONO # 0.4 K/uL (0.0-0.8); MONO % 7.2 % (0.0-10.0); NEUT # 3.4 K/uL (1.8-7.0); NRBC % 0.2 % (0.0-0.0); RBC 4.07 Mil/uL (3.80-5.20); RED CELL DISTRIBUTION WIDTH 13.9 % (11.5-14.5); WHITE BLOOD COUNT 5.4 K/uL (4.8-10.8)
[2017-04-07 08:38] LABS: ALB/GLOB RATIO 1.1 (1.0-2.1); ALT/SGPT 309 U/L (9-52); AST/SGOT 175 U/L (14-36); BLOOD UREA NITROGEN 6 mg/dl (7-17); CALCIUM 8.3 mg/dL (8.4-10.2); GFR AFRICAN-AMERICAN > 60; GFR NON-AFRICAN AMERICAN > 60; LIPASE 150 U/L (23-300)
[2017-04-07] MEDS ORDERED: Patient's Own Med (Omeprazole [Omeprazole] 40 MG) PO SCH (09:00)
[2017-04-07] MEDS ORDERED: Pantoprazole 40 mg EC Tab PO SCH (09:00)
--- NOTE | 2017-04-07 16:48 | CARD ---
APPROVED REPORT EKG Measurement Heart [id number] <Conclusion> Normal sinus rhythm with sinus arrhythmia Normal ECG
--- NOTE | 2017-04-07 17:31 | CP.PCM.DIS ---
Provider - Provider Date of Admission: 04/07/17 00:09 Attending physician: Rehan Martínez MD Time Spent in preparation of Discharge (in minutes): 15 Diagnosis - Discharge Diagnosis (1) Pancreatitis Status: Acute (2) DVT prophylaxis Status: Acute (3) Liver enzyme elevation Status: Acute (4) Nausea & vomiting Status: Acute Hospital Course - Lab Results Lab Results: Most Recent Lab Values WBC 5.4 K/uL (4.8-10.8) 04/07/17 08:12 RBC 4.07 Mil/uL (3.80-5.20) 04/07/17 08:12 Hgb 12.2 g/dL (12.0-16.0) 04/07/17 08:12 Hct 36.6 % (34.0-47.0) 04/07/17 08:12 MCV 90.0 fl (81.0-99.0) 04/07/17 08:12 MCH 30.0 pg (27.0-31.0) 04/07/17 08:12 MCHC 33.3 g/dL (33.0-37.0) 04/07/17 08:12 RDW 13.9 % (11.5-14.5) 04/07/17 08:12 Plt Count 249 K/uL (130-400) 04/07/17 08:12 MPV 8.5 fl (7.2-11.7) 04/07/17 08:12 Neut % (Auto) 63.0 % (50.0-75.0) 04/07/17 08:12 Lymph % (Auto) 23.7 % (20.0-40.0) 04/07/17 08:12 [place] % (Auto) 7.2 % (0.0-10.0) 04/07/17 08:12 Eos % (Auto) 5.4 % (0.0-4.0) H 04/07/17 08:12 Baso % (Auto) 0.7 % (0.0-2.0) 04/07/17 08:12 Neut # 3.4 K/uL (1.8-7.0) 04/07/17 08:12 Lymph # 1.3 K/uL (1.0-4.3) 04/07/17 08:12 [place] # 0.4 K/uL (0.0-0.8) 04/07/17 08:12 Eos # 0.3 K/uL (0.0-0.7) 04/07/17 08:12 Baso # 0.0 K/uL (0.0-0.2) 04/07/17 08:12 Sodium 141 mmol/l (132-148) 04/07/17 08:12 Potassium 4.1 MMOL/L (3.6-5.0) 04/07/17 08:12 Chloride 109 mmol/L (98-107) H 04/07/17 08:12 Carbon Dioxide 22 mmol/L (22-30) 04/07/17 08:12 Anion Gap 14 (10-20) 04/07/17 08:12 BUN 6 mg/dl (7-17) L 04/07/17 08:12 Creatinine 0.5 mg/dl (0.7-1.2) L 04/07/17 08:12 Est GFR ( Amer) > 60 04/07/17 08:12 Est GFR (Non-Af Amer) > 60 04/07/17 08:12 Random Glucose 86 mg/dL (65-105) 04/07/17 08:12 Calcium 8.3 mg/dL (8.4-10.2) L 04/07/17 08:12 Total Bilirubin 0.8 mg/dl (0.2-1.3) 04/07/17 08:12 AST 175 U/L (14-36) H D 04/07/17 08:12 ALT 309 U/L (9-52) H D 04/07/17 08:12 Alkaline Phosphatase 111 U/L (38-126) 04/07/17 08:12 Total Protein 5.7 G/DL (6.3-8.2) L 04/07/17 08:12 Albumin 3.0 g/dL (3.5-5.0) L D 04/07/17 08:12 Globulin 2.7 gm/dL (2.2-3.9) 04/07/17 08:12 Albumin/Globulin Ratio 1.1 (1.0-2.1) 04/07/17 08:12 Lipase 150 U/L (23-300) 04/07/17 08:12 Urine Color Yellow (YELLOW) 04/06/17 22:57 Urine Clarity Cloudy (Clear) 04/06/17 22:57 Urine pH 8.0 (5.0-8.0) 04/06/17 22:57 Ur Specific [place] 1.012 (1.003-1.030) 04/06/17 22:57 Urine Protein Negative mg/dL (NEGATIVE) 04/06/17 22:57 Urine Glucose (UA) Neg mg/dL (Normal) 04/06/17 22:57 Urine Ketones Negative mg/dL (NEGATIVE) 04/06/17 22:57 Urine Blood Negative (NEGATIVE) 04/06/17 22:57 Urine Nitrate Negative (NEGATIVE) 04/06/17 22:57 Urine Bilirubin Negative (NEGATIVE) 04/06/17 22:57 Urine Urobilinogen 0.2-1.0 mg/dL (0.2-1.0) 04/06/17 22:57 Ur Leukocyte Esterase Neg [place]/uL (Negative) 04/06/17 22:57 Urine RBC (Auto) 4 /hpf (0-3) H 04/06/17 22:57 Urine Microscopic WBC 5 /hpf (0-5) 04/06/17 22:57 Ur Squamous Epith Cells 9 /hpf (0-5) H 04/06/17 22:57 Calcium Oxalate Crystal Occ /hpf (<OCC) H 04/06/17 22:57 Urine Bacteria Many (<OCC) H 04/06/17 22:57 Discharge Exam - Head Exam Head Exam: ATRAUMATIC, NORMAL INSPECTION, NORMOCEPHALIC Discharge Plan - Discharge Medications Prescriptions: Dicyclomine [Bentyl] 10 mg PO 0730,1130,1630,2200 #30 cap Ibuprofen [Motrin Tab] 600 mg PO Q8 PRN #20 tab PRN Reason: abd pain Omeprazole 40 mg PO DAILY #30 ecc Ondansetron [Zofran Odt] 4 mg PO Q8 PRN #30 tab.rapdis PRN Reason: Nausea/Vomiting - Follow Up Plan Condition: FAIR Disposition: HOME/ ROUTINE Instructions: Pancreatitis (DC), Pancreatitis (GEN) Additional Instructions: Follow up with Dr. Isaías Forrest tomorrow in his [place] office [address] [facility], [address] [place]. [phone]. [place] diet final dx-elev lft, pancreatitis, pending liver bx, f/u rmg 2 days, rted prn, med spe rmed rec, meds e-rx
== END 2017-04-07 16:15 | disposition home or self-care (01) | DRG 204 ==
LOC: H.ER 22:01 → H.ERHOLD 04-07 00:09 → H.MEDSURG1 04-07 01:27
PROVIDERS: ADMIT Family Medicine; ATTEND Family Medicine
DX: K85.90 Acute pancreatitis without necrosis or infection, unspecified (principal); G89.29 Other chronic pain; Z79.899 Other long term (current) drug therapy; R74.0 Nonspecific elevation of levels of transaminase and lactic acid dehydrogenase [LDH]